=== PATIENT | female | born 1950 | race African-American/Black ===

== ENCOUNTER 2020-03-02 14:28 | Inpatient (IN) | payer OTHER ==
[~2020-03-02] VITALS: Ht 170.2 cm; Wt 125.7 kg
[2020-03-02 14:29] VITALS: BP 121/75
[2020-03-02] MEDS ORDERED: LISINOPRIL-HCT1 EAC2 PO (14:45)
[2020-03-02] MEDS ORDERED: PEPCID20 MG PO (14:45)
[2020-03-02] MEDS ORDERED: AZITHROMYCIN500 MG PO (14:45)
[2020-03-02] MEDS ORDERED: CELEBREX 200 M200 MG PO (14:46)
[2020-03-02] MEDS ORDERED: ASA81BEC PO (14:46)
[2020-03-02 15:05] LABS: HEMATOCRIT 40.5 % (37.0-47.0); HEMOGLOBIN 13.6 gm/dL (12.0-15.0); MCHC 33.7 g/dL (28.0-37.0); MCV 83.1 fL (80.0-100.0); PLATELET COUNT 180 thou/uL (150-400); RBC 4.87 mil/uL (4.20-5.00); RDW 14.3 % (10.5-14.5); WBC 9.3 thou/uL (4.0-11.0)
[2020-03-02 15:16] LABS: ANION GAP 11 mmol/L (7-16); BUN 53 mg/dL (7-18); CHLORIDE 97 mmol/L (98-107); CO2 28 mmol/L (21-32); CREATININE 1.8 mg/dL (0.6-1.0); GLUCOSE 121 mg/dL (74-106); POTASSIUM 3.4 mmol/L (3.5-5.1); SODIUM 136 mmol/L (136-145)
[2020-03-02 15:25] LABS: BE(vivo) -0.2 mmol/L (-2 to +3); HCO3 22.8 mmol/L (22.0-26.0); PCO2 32.6 mmHg (35.0-45.0); PO2 92.2 mmHg (80.0-100.0); pH 7.463 (7.360-7.450); sO2 97.5 % (92.0-98.0)
[2020-03-02 15:27] LABS: ALBUMIN 3.2 g/dL (3.4-5.0); SGOT 340 U/L (15-37); SGPT 160 U/L (30-65); TOTAL BILIRUBIN 1.1 mg/dL (<0.1-1.0); TOTAL PROTEIN 9.2 g/dL (6.4-8.2); TROPONIN-I <0.06 ng/mL (<0.06)
[2020-03-02 16:31] LABS: URINE BILIRUBIN NEGATIVE (Negative); URINE BLOOD 3+ (Negative); URINE CLARITY SL CLOUDY; URINE COLOR YELLOW; URINE GLUCOSE-RANDOM* NEGATIVE (Negative); URINE KETONES NEGATIVE (Negative); URINE LEUKOCYTES-REFLEX NEGATIVE (Negative); URINE NITRITE-REFLEX NEGATIVE (Negative); URINE PROTEIN (DIPSTICK) 2+ (Negative)
[2020-03-02 16:50] LABS: ABSOLUTE NEUTROPHILS 7.4 thou/uL (1.4-8.2); ANISOCYTOSIS 1+
[2020-03-02 16:52] LABS: COARSE GRANULAR CASTS 0-3 Few /LPF (None Seen); SQUAMOUS 0-3 Few /LPF (0-3)
[2020-03-02 16:53] LABS: TRANSITIONAL EPITHEL CELL 0-3 Few /LPF (None Seen)
[2020-03-02 16:54] LABS: BACTERIA-REFLEX 1-9 Few /HPF (None Seen); CRYSTALS None Seen /LPF (None Seen); URINE RBC 0-2 Rare /HPF (0-2); URINE WBC-REFLEX 0-5 Rare /HPF (0-5)
[2020-03-02 19:12] LABS: FIBRINOGEN 798.3 mg/dL (210-360)
[2020-03-03] VITALS (22 sets, daily range): BP systolic 95–119; BP diastolic 62–75
--- NOTE | 2020-03-03 01:02 | NUR ---
NURSE NOTIFIED OF CRITICAL RESULTS FOR aPTT. STATES PATIENT IS ON A WEIGHT-BASED HEPARIN GTTS. DR. PERRY NOTIFIED OF RESULTS
--- NOTE | 2020-03-03 06:00 | NUR ---
0445 03/03: PT TRANSPORTED TO ICU ACCOMPANIED BY SECURITY OFFICER SUPERVISOR 0500: PT ALERT AND ORIENTED. PTON 15L HIGH FLOW NC. 0515: PT ASSESSED, BATHED AND CONNECTED TO ICU MONITORS. 0550: DR. MERINO WAS CALLED AND INFORMED ABOUT PT ARRIVAL TO ICU. DR. MERINO INFORMED ABOUT PT TACHYPNEIC, TACHYCARDIC AND FEBRILE. ORDERS FOR PRN BIPAP AND TYLENOL GIVEN.
[2020-03-03] MEDS ORDERED: PROMETHAZI6.25 MG/5 (06:08)
[2020-03-03 07:30] LABS: HEMATOCRIT 38.7 % (37.0-47.0); HEMOGLOBIN 12.9 gm/dL (12.0-15.0); MCHC 33.3 g/dL (28.0-37.0); RBC 4.6 mil/uL (4.20-5.00); RDW 14.5 % (10.5-14.5); WBC 9.4 thou/uL (4.0-11.0)
[2020-03-03 07:38] LABS: CALCIUM 8.4 mg/dL (8.5-10.1); CREATININE 1.4 mg/dL (0.6-1.0); POTASSIUM 3.3 mmol/L (3.5-5.1)
--- NOTE | 2020-03-03 08:01 | EKG ---
[facility] [place] [address] ELECTROCARDIOGRAM REPORT Name: BERNARDO MCDONNELL Room #: 236-P ADM IN M.R.#: [id number] Admission: 03/02/20 Attend Phys: Shaji Santoyo MD Discharge: Date of : 50 Report #: [id number] THIS REPORT FOR: cc: Samina Godwin MD, Karla L. MD Lundgren,Shon Hall MD [facility] ~ THIS REPORT FOR: //name// [facility] ED Test Date: 2020-03-02 Test Time: 14:41:28 Pat Name: BERNARDO MCDONNELL Department: Room: [facility] Gender: F Eyeglass Fitter: PORFIRIO : 1950 Requested By: Bernardo Moses Order Number: [id number] MD: Shon Olsen Measurements Intervals [place] Rate: 117 P: 37 GA: 154 QRS: 1 QRSD: 89 T: -3 QT: 307 QTc: 429 Interpretive Statements Sinus tachycardia Poor R wave progression No previous ECG available for comparison Electronically Signed On 03-03-2020 7:59:31 CDT by Shon Olsen [email or web address] <ELECTRONICALLY SIGNED> By: Shon Olsen MD, FACC 03/03/20 0759 1441 1441 Shon Olsen MD, [facility] /EPI
--- NOTE | 2020-03-03 08:26 | NUR ---
PT RESTING WELL IN BIPAP. REPORT GIVEN TO SUDARSHAN HANEY. CHART CHECK. CONTINUE TO MONITOR. PT SLOWLY PROGRESSING TOWARDS GOALS.
[2020-03-03 11:30] LABS: ALBUMIN 2.8 g/dL (3.4-5.0); DIRECT BILIRUBIN 0.2 mg/dL (<0.1-0.2); TOTAL BILIRUBIN 0.6 mg/dL (<0.1-1.0); TOTAL PROTEIN 8.3 g/dL (6.4-8.2)
--- NOTE | 2020-03-03 12:17 | NUR ---
PT TAKEN OFF OF BIPAP PER RT IN ORDER TO DRAW AN ABG. PT TOLERATED FOR 5 MINUTES THAN BEGAN TO DESAT. I BEGAN BIPAP THERAPY AGAIN. PT SATURATION 100%.
--- NOTE | 2020-03-03 13:22 | NUR ---
ASSESSMENT: CM REVIEWED CHART AND SPOKE WITH ATTENDING. PT IS CURRENTLY ON BIPAP AND CM SPOKE WITH PATIENTS DAUGHTER KWESI WHO IS ALSO HERE ADMITTED TO THE HOSPITAL IN ATTEMPTS TO GATHER MORE INFORMATION. PT LIVES AT HOME WITH HER SON AND DAUGHTER WHO ARE ALL CURRENTLY ADMITTED BEING TESTED FOR COVID 19. PTS SON HAD BEEN TESTED AT [facility] AND REPORTEDLY GOT A CALL THAT HIS CAME BACK POSITIVE. PT WAS ADMITTED WITH COUGH/SOB. DAUGHTER REPORTS PT IS NORMALLY INDEPENDENT WITH AMBULATION BUT DOES HAVE A CANE AND WALKER AT HOME. PT DOES NOT HAVE ANY OXYGEN AT HOME OR CPAP/BIPAP BUT IS CURRENTLY ON BIPAP IN THE ICU. PT HAS NOT HAD HH IN THE PAST OR BEEN TO A SNF. PT IS INDEPENDENT WITH ADLS. PT IS IN ISOLATION TO RULE OUT COVID 19- RESULTS ARE PENDING. CM WILL CONTINUE TO FOLLOW TO ASSIST NEEDED.
--- NOTE | 2020-03-03 20:16 | NUR ---
VAT CONSULTED FOR A CL FOR THIS PT. PT IS ICU STATUS WITH COVID+ AND SEPSIS. A [id number] PLACED IN RT IJ WITH THE CXR REVEALING THE TIP AT THE CAJ. LINE OK FOR USE, PLEASE SEE NI FOR DETAILS
[2020-03-04] VITALS (25 sets, daily range): BP systolic 95–168; BP diastolic 61–94
[2020-03-04 05:40] LABS: ALBUMIN 2.6 g/dL (3.4-5.0); TOTAL BILIRUBIN 0.4 mg/dL (<0.1-1.0); TOTAL PROTEIN 7.1 g/dL (6.4-8.2)
[2020-03-04 05:53] LABS: ABSOLUTE NEUTROPHILS 7.5 thou/uL (1.4-8.2); BASOPHILS 0.1 % (0.0-2.0); EOSINOPHILS 0.1 % (0.0-3.0); HEMATOCRIT 34.1 % (37.0-47.0); HEMOGLOBIN 11.2 gm/dL (12.0-15.0); MCH 27.9 pg (26.0-34.0); MCHC 32.9 g/dL (28.0-37.0); MCV 84.7 fL (80.0-100.0); MONOCYTES 6.9 % (1.0-8.0); PLATELET COUNT 217 thou/uL (150-400); POLYS 81.9 % (36.0-66.0); RBC 4.02 mil/uL (4.20-5.00); RDW 14.5 % (10.5-14.5); WBC 9.1 thou/uL (4.0-11.0)
[2020-03-04 06:35] LABS: CALCIUM 8.4 mg/dL (8.5-10.1); CREATININE 1.2 mg/dL (0.6-1.0); POTASSIUM 3.7 mmol/L (3.5-5.1)
--- NOTE | 2020-03-04 06:37 | NUR ---
WAS UNABLE TO SEE PT UNTIL 0 DUE TO LACK N95 MASK. ASSESSMENTS AND MEDS GIVEN ARE CHARTED. PT HAD A FEVER OF 100.4 AROUND 2300 AND COMPLAINED ABOUT LUQ ABD PAIN TYLENOL GIVEN AND FEVER STATED TRENDING DOWN. TEMP AT THIS TIME IS 37.4. SPOKE TO PT'S SISTER NITA AT 1940 UPDATED HER ABOUT PT STATUS, AND VITAL SIGNS. INFORMED HER THAT PT WOULD BE GETTING CONVALESCENT PLASMA DURING THE NOC. SPOKE TO PT'S SISTER NITA AGAIN AT 0144; UPDATED HER ON PT'S STATUS AND INFORMED HER THAT PT IS CURRENTLT GETTING SAID PLASMA, PT APPEARS TO BE TOLERATING INFUSION WELL. PT IS STABLE, STILL TACHYPENIC WITH RR IN THE 30s, FIO2 OF BIPAP DOWN TO 50%. PT STILL GETS SOB WITH LIGHT ACTIVITY LIKE TURNING AND PULLING SELF UP IN BED. PT IS SLOWLY PROGRESSING TOWARDS POC GOALS.
[2020-03-04 07:04] LABS: PROTIME 10.7 Seconds (9.3-11.4)
--- NOTE | 2020-03-04 12:09 | NUR ---
ON-GOING ASSESSMENT: CM REVIEWED CHART AND SPOKE WITH ATTENDING. PT REMAINS ON THE BIPAP AND MAY POSSIBLY NEED INTUBATION IF SHE DOES NOT IMPROVE. PT REMAINS IN ISOLATION DUE TO BEING POSITIVE FOR COVID. CM WILL CONTINUE TO FOLLOW TO ASSIST NEEDED.
--- NOTE | 2020-03-04 12:14 | NUR ---
ON-GOING ASSESSMENT: CM REVIEWED CHART AND SPOKE WITH ATTENDING. PT REMAINS IN ISOLATION DUE TO BEING POSITIVE FOR COVID 19. PT REMAINS ON THE BIPAP. WILL CONTINUE TO SEE HOW PATIENT PROGRESSES.
--- NOTE | 2020-03-04 18:30 | NUR ---
Pt tachypnic throughout the day with respiratory rate up to 40's. Pt denies feeling worn out with her breathing or in distress. Maintaining O2 sat mid-upper 90's. Dr Alves here for second time to see patient and wants to continue to support. No intubation at this time. Sinus tachycardia. Maintained NPO except sips of water and meds. Started on PPN. Updates given to daughter and sister.
--- NOTE | 2020-03-04 19:15 | NUR ---
Report given to SUDARSHAN Baldwin assuming care.
--- NOTE | 2020-03-04 20:42 | NUR ---
Pt complaining of severe abdominal pain.... cramping, stabbing...generalized. Abdomen softly distended, round. BS hypoactive. Jen Campbell SOLUTION ARCHITECT called with update. Order rec'd for fentanyl 25 mcg IV.
--- NOTE | 2020-03-04 21:05 | NUR ---
Pt restless due to pain. Awaiting pharmacy to acknowledge fentanyl order. Pt pulled off BiPAP and tore apart circuit. Tacypneic, tachycardic, SaO2 down to low 80's. RT called for assistance. BiPAP replaced. Pt states she is burning up. Tylenol for temperature 38.5C. Fentanyl 25mcg for servere abdominal pain. Cold compress to forehead. Positioned onto right side per pt request. Pt begging RN to sit with her. Emotional support given.
--- NOTE | 2020-03-04 21:23 | NUR ---
Pt settling down. RR remains in the mid 30's. SaO2 96%. Pt states abdominal pain is improving.
--- NOTE | 2020-03-04 21:42 | NUR ---
Pt finally resting states pain is better and is going to try and sleep.
[2020-03-05] VITALS (55 sets, daily range): BP systolic 47–188; BP diastolic 30–116
--- NOTE | 2020-03-05 01:44 | NUR ---
Pt positioned onto left side. SaO2 consistently 89-90%. FiO2 increased to 50% per BiPAP. RT, Ailyn, notified.
--- NOTE | 2020-03-05 02:06 | NUR ---
SaO2 up to 94% with increase in FiO2 to 50%. Pt resting, states pain is much better and she is more comfortable.
--- NOTE | 2020-03-05 03:26 | NUR ---
Pt again pulled off BiPAP and tore apart circuit. Stated she was trying to get to the bathroom. Call light within reach but pt states she didn't have time to use it. Placed back on BiPAP. Bath given, linens changed. Placed on bedpan. Pt w/ large liquid dark brown stool. Pt tolerated whole event fair. SaO2 95% when placed back on BiPAP. Pt continues to breathe in the low 40's. Temp. down to 99.6 axillary. Pt reoriented to room and call light within reach. Pt reminded of danger of removing BiPAP herself when it takes time for caregivers to gown up and mask to enter room. Pt states understanding, states it couldn't be helped.
--- NOTE | 2020-03-05 05:53 | NUR ---
aptt therapeutic. No change made to Heparin gtt. Pt remains oriented x4. Tachypneic, Tachycardic. SaO2 96% on BiPAP current settings. FiO2 50%. Lungs diminished. Harsh non productive cough. Large liquid stool. PPN at 80ml/hr. NPO. Smith with adquate output.
[2020-03-05 06:11] LABS: D-DIMER 0.61 ug/mLFEU (0.19-0.50)
[2020-03-05 06:16] LABS: FIBRINOGEN 782.4 mg/dL (210-360)
--- NOTE | 2020-03-05 06:41 | NUR ---
Temperature up to 101.5/38.6C axillary. Tylenol again given for fever. Pt c/o chilling....wanting additional blankets. Emotional support given.
[2020-03-05 13:02] LABS: HEMATOCRIT 34.3 % (37.0-47.0); MCH 27.4 pg (26.0-34.0); MCV 85.8 fL (80.0-100.0); RDW 14.2 % (10.5-14.5); WBC 10.4 thou/uL (4.0-11.0)
[2020-03-05 13:18] LABS: ALBUMIN 2.4 g/dL (3.4-5.0); CALCIUM 8.8 mg/dL (8.5-10.1); CREATININE 1.1 mg/dL (0.6-1.0); MAGNESIUM 2.5 mg/dL (1.8-2.4); POTASSIUM 3.7 mmol/L (3.5-5.1); TOTAL BILIRUBIN 0.4 mg/dL (<0.1-1.0); TOTAL PROTEIN 7.6 g/dL (6.4-8.2)
--- NOTE | 2020-03-05 15:34 | NUR ---
SW reviewed chart and spoke with attending physician. Pt remains on bipap and is febrile. No weekend discharge planned. SW is following to assist as needed with discharge planning.
[2020-03-05 16:46] LABS: BE(vivo) 2.2 mmol/L (-2 to +3); HCO3 28.6 mmol/L (22.0-26.0); PCO2 52.9 mmHg (35.0-45.0); PO2 220.5 mmHg (80.0-100.0); pH 7.351 (7.360-7.450); sO2 99.4 % (92.0-98.0)
--- NOTE | 2020-03-05 19:15 | NUR ---
INTUBATED AT 1425. WAS BREATHING 40-50 TIMES A MINUTE ON BIPAP. TOLERATING VENT AND SEDATED WITH PROPOFOL
[2020-03-05 20:25] LABS: HEMATOCRIT 34.7 % (37.0-47.0); HEMOGLOBIN 11.2 gm/dL (12.0-15.0); MCH 27.7 pg (26.0-34.0); MCHC 32.2 g/dL (28.0-37.0); MCV 86.1 fL (80.0-100.0); RBC 4.04 mil/uL (4.20-5.00); RDW 14.4 % (10.5-14.5); WBC 13.9 thou/uL (4.0-11.0)
--- NOTE | 2020-03-05 21:30 | NUR ---
WENT TO ASSESS PT AT 1999 TEMP WAS 38.6 CELCIUS. ICE PACKS WAS PUT IN HER GROIN, UNDERARM AND NECK AND TYLENOL WAS GIVEN. TEMP CONTINUED TO TREND UP WITH MAX BEING 39.6 CELCIUS. PT ALSO BECAME HYPERTENSIVE, TACHYCARDIC, AND TACHYPNEIC WITH BP UP TO 188/96, HR IN 130s AND RR BTW HIGH 50s - LOW 70s. I GAVE HER A 23ML BOLUS OF PROPOFOL AT 2024 AND SHE BEGAN TO STABILIZE. PT BP, RR AND HR STARTED TRENDING DOWN. AT 2044, BP WAS DOWN TO 104/67, HR-118 AND RR- 28. AT 2099. TEMP STARTED TO TREND DOWN AND MOST RECENT TEMP IS 39.0 CELCIUS. SPOKE TO PT'S SISTER AT 2123, UPDATED HER ABOUT PT'S STATUS INCLUDING PT'S VSS AT THE TIME.
--- NOTE | 2020-03-05 22:04 | NUR ---
WENT TO ASSESS PT AT 1999, TEMP WAS 38.6 CELCIUS, ICE PACKS WERE PUT IN HER GROIN, UNDERARM, NECK AND TYLENOL WAS ALSO GIVEN. PT'S TEMP CONTINUED TO TREND UP WITH THE MAX BEING 39.6 CELCIUS. PT BECAME HYPERTENSIVE, TACHYCARDIC, AND TACHYPNEIC WITH BP UP TO 188/96, HR IN 130s AND RR BTW HIGH 50s - LOW 70s. I TURNED UP HER PROPOFOL TO 80 MCG AND SHE BEGAN TO STABILIZE. PT'S BP, RR, AND HR STARTED TRENDING DOWN. AT 2044, BP WAS DOWN TO 104/67, HR-118 AND RR-28. AT 2099, TEMP STARTED TO TREND DOWN MOST RECENT TEMP BEING 38.9 SPOKE TO PT'S SISTER NITA AT 2123; UPDATED HER ABOUT PT'S STATUS INCLUDING PT'S VSS AT THAT TIME.
[2020-03-06] VITALS (84 sets, daily range): BP systolic 80–142; BP diastolic 33–88
[2020-03-06 05:13] LABS: BE(vivo) -0.9 mmol/L (-2 to +3); HCO3 25.3 mmol/L (22.0-26.0); PCO2 48.2 mmHg (35.0-45.0); PO2 156.4 mmHg (80.0-100.0); pH 7.338 (7.360-7.450); sO2 98.9 % (92.0-98.0)
[2020-03-06 06:52] LABS: ABSOLUTE NEUTROPHILS 13.4 thou/uL (1.4-8.2); BASOPHILS 0.3 % (0.0-2.0); EOSINOPHILS 0.3 % (0.0-3.0); HEMATOCRIT 33.1 % (37.0-47.0); HEMOGLOBIN 10.6 gm/dL (12.0-15.0); LYMPHOCYTES 4.8 % (24.0-44.0); MCH 27.7 pg (26.0-34.0); MCHC 32.1 g/dL (28.0-37.0); MCV 86.3 fL (80.0-100.0); PLATELET COUNT 270 thou/uL (150-400); POLYS 90.6 % (36.0-66.0); RBC 3.83 mil/uL (4.20-5.00); RDW 14.7 % (10.5-14.5); WBC 14.8 thou/uL (4.0-11.0)
[2020-03-06 07:12] LABS: D-DIMER 0.91 ug/mLFEU (0.19-0.50); INR 1.1; PROTIME 11.1 Seconds (9.3-11.4)
[2020-03-06 07:16] LABS: CALCIUM 8.9 mg/dL (8.5-10.1); CREATININE 1.2 mg/dL (0.6-1.0); MAGNESIUM 2.1 mg/dL (1.8-2.4); POTASSIUM 3.4 mmol/L (3.5-5.1); TOTAL BILIRUBIN 0.5 mg/dL (<0.1-1.0); TOTAL PROTEIN 7.3 g/dL (6.4-8.2)
[2020-03-06 07:18] LABS: FIBRINOGEN 798.3 mg/dL (210-360)
[2020-03-06 13:44] LABS: BE(vivo) 1.6 mmol/L (-2 to +3); HCO3 25.8 mmol/L (22.0-26.0); PCO2 39.1 mmHg (35.0-45.0); PO2 88.8 mmHg (80.0-100.0); pH 7.438 (7.360-7.450); sO2 97.1 % (92.0-98.0)
--- NOTE | 2020-03-06 15:04 | NUR ---
PT REMAINS ON THE VENT AT THIS TIME. LUNGS ARE COARSE. SINUS TACYCARDIA NOTED ON THE CARDIAC MONIOR. PEREZ TO DD WITH BERYL URINE NOTED. REMAINS IN WRIST RESTRAINTS BILAERAL. REMAINS ON HEPARIN DRIP PER PROTACAL AT THIS TIME. WILL HOLD PRONING TODAY. FAMILY UPDATED ON PT PROGRESS IN THE ICU NO ISSUES OR CONERNS NOTED AT THIS TIME PER NURSING
[2020-03-07] VITALS (42 sets, daily range): BP systolic 88–142; BP diastolic 51–90
[2020-03-07 05:37] LABS: HEMATOCRIT 29.3 % (37.0-47.0); HEMOGLOBIN 9.4 gm/dL (12.0-15.0); MCH 27.4 pg (26.0-34.0); MCV 85.9 fL (80.0-100.0); RBC 3.41 mil/uL (4.20-5.00); RDW 14.6 % (10.5-14.5); WBC 12.2 thou/uL (4.0-11.0)
[2020-03-07 05:47] LABS: CALCIUM 8.5 mg/dL (8.5-10.1); CREATININE 1.7 mg/dL (0.6-1.0); MAGNESIUM 2.1 mg/dL (1.8-2.4)
[2020-03-07 06:07] LABS: D-DIMER 5.4 ug/mLFEU (0.19-0.50); FIBRINOGEN 887.5 mg/dL (210-360)
--- NOTE | 2020-03-07 06:20 | NUR ---
Pt has had uneventful night. Fever initially 101.7 F, now down to 98 F (no Tylenol given for temp). Tolerating tube feeding, increased from 20 cc/hr to 30 cc/hr this shift. Flexiseal placed early in shift to prevent skin breakdown due to continuous small to moderate amounts of liquid stool. Levophed started at beginning of shift to keep MAP >60; pt remains on 5 mcg/min and MAP has been 61-80. Urine output remains adequate. Blood sugar on labs >250 this morning. Pt not diabetic but did start on steroids per Dr. Santoyo. BATTERY REPAIRER notified and sliding scale insulin ordered.
--- NOTE | 2020-03-07 18:39 | NUR ---
SPOKE WITH PT'S DAUGHTER ANNE ON PHONE AND GAVE HER AN UPDATE ON PT'S CONDITION. DAUGHTER STATES SHE WILL CALL AGAIN IN AM TO CHECK ON HER.
--- NOTE | 2020-03-07 18:44 | NUR ---
PT WEANED OFF OF LEVOPHED THIS SHIFT. MAP HAS REMAINED GREATER THAN 60.
[2020-03-08] VITALS (17 sets, daily range): BP systolic 108–141; BP diastolic 61–83
[2020-03-08 05:23] LABS: CALCIUM 8.6 mg/dL (8.5-10.1); CREATININE 1.7 mg/dL (0.6-1.0); MAGNESIUM 2.4 mg/dL (1.8-2.4); POTASSIUM 3.2 mmol/L (3.5-5.1)
[2020-03-08 05:26] LABS: D-DIMER 0.72 ug/mLFEU (0.19-0.50)
[2020-03-08 05:31] LABS: FIBRINOGEN 849.7 mg/dL (210-360)
--- NOTE | 2020-03-08 06:00 | NUR ---
REMAINS INTUBATED AND SEDATED WITH PROPOFOL GTT. 1300 CC UO THIS SHIFT. CONT ON HEPARIN GTT APTT THERAPUTIC BATH. ISOLATION FOR COVID 19, WILL CONT TO MONITOR
[2020-03-08 07:08] LABS: ADENOVIRUS Negative (Negative); INFLUENZA A Negative (Negative); INFLUENZA B Negative (Negative); METAPNEUMOVIRUS Negative (Negative); PARAINFLUENZA 1 Negative (Negative); PARAINFLUENZA 2 Negative (Negative); PARAINFLUENZA 3 Negative (Negative); RHINOVIRUS Negative (Negative); RSV A Negative (Negative); RSV B Negative (Negative)
[2020-03-08 07:31] LABS: HEMATOCRIT 29.9 % (37.0-47.0); HEMOGLOBIN 9.7 gm/dL (12.0-15.0); MCH 27.6 pg (26.0-34.0); MCHC 32.4 g/dL (28.0-37.0); MCV 85.4 fL (80.0-100.0); RBC 3.5 mil/uL (4.20-5.00); RDW 14.6 % (10.5-14.5)
[2020-03-08 12:48] LABS: BE(vivo) -1.3 mmol/L (-2 to +3); PCO2 36.7 mmHg (35.0-45.0); PO2 69.4 mmHg (80.0-100.0); pH 7.414 (7.360-7.450); sO2 94.3 % (92.0-98.0)
[2020-03-08 19:00] LABS: HEMATOCRIT 29.1 % (37.0-47.0); HEMOGLOBIN 9.4 gm/dL (12.0-15.0); MCH 27.2 pg (26.0-34.0); MCHC 32.3 g/dL (28.0-37.0); MCV 84.2 fL (80.0-100.0); RBC 3.46 mil/uL (4.20-5.00); RDW 14.5 % (10.5-14.5); WBC 19.6 thou/uL (4.0-11.0)
[2020-03-09] VITALS (27 sets, daily range): BP systolic 91–143; BP diastolic 52–87
[2020-03-09 03:07] LABS: GLYCOHEMOGLOBIN (HGB A1C) 6.9 % (4.8-5.6)
[2020-03-09 05:45] LABS: HEMATOCRIT 27.2 % (37.0-47.0); HEMOGLOBIN 8.8 gm/dL (12.0-15.0); MCH 27.5 pg (26.0-34.0); MCHC 32.3 g/dL (28.0-37.0); MCV 85.1 fL (80.0-100.0); RBC 3.2 mil/uL (4.20-5.00); RDW 14.7 % (10.5-14.5); WBC 20.2 thou/uL (4.0-11.0)
[2020-03-09 05:48] LABS: ALBUMIN 1.8 g/dL (3.4-5.0); CALCIUM 8.5 mg/dL (8.5-10.1); CREATININE 1.6 mg/dL (0.6-1.0); POTASSIUM 3.2 mmol/L (3.5-5.1); TOTAL BILIRUBIN 0.3 mg/dL (<0.1-1.0); TOTAL PROTEIN 6.6 g/dL (6.4-8.2)
--- NOTE | 2020-03-09 08:00 | NUR ---
0800- DR. BRANCH ROUNDING ON PATIENT. UPDATED ABOUT SEDATION VACATION THIS AM FROM [id number]. PT RESPIRATIONS WERE 60'S BPM, NO EYE OPENING, NOT FOLLOWING COMMANDS. O2 SATURATIONS WERE >92%. PATIENT AND VENTILATOR WERE NOT INSINK. NURSE TO CONTINUE TO MONITOR PATIENT STATUS.
--- NOTE | 2020-03-09 11:43 | HC ---
[facility] [place] [address] CONSULTATION Name: BERNARDO MCDONNELL Room #: 239-P ADM IN M.R.#: [id number] Admission: 03/02/20 Attend Phys: Shaji Santoyo MD Discharge: Date of : 50 Report #: [id number] THIS REPORT FOR: cc: Samina Godwin MD,Phong Garcia MD, MD ~ CC: Shaji Godwin DATE OF SERVICE: 03/08/2020 REASON FOR CONSULTATION: Severe hyperglycemia. HISTORY OF PRESENT ILLNESS: This is a 69-year-old female patient whose medical background is significant for multiple medical issues including hypertension and rheumatoid arthritis who presented on 03/02/2020 with complaints of progressive fatigue, tiredness as well as cough and fever. As she was worked up, she proved to be COVID-19 positive and had gradually gone into respiratory distress to where she had to be mechanically ventilated. Her care involved the utilization of high dose steroid therapy as well as hydroxychloroquine per protocol as well as plasma transfusion. The patient was also started on bronchodilators as well as high dose steroid therapy in the form of methylprednisolone 62.5 mg q.i.d. IV. Subsequently, she developed severe hyperglycemia over the past 24 hours, although her medical background is negative for type 2 diabetes mellitus or a prior documentation of severe hyperglycemia. After multiple attempts to contain this hyperglycemic outlook with subcutaneous insulin, the managing team reverted to intravenous insulin therapy. Her other active issues include acute kidney injury as well as transaminitis. It appears that she has had difficulties with hemodynamic instability and hypertension probably due to propofol. Again, the patient is intubated and sedated and is not accessible for a full history at the present time. REVIEW OF SYSTEMS: Cannot be obtained at the present time due to the patient's intubated, sedated state. However, having reviewed her medical record in detail. The highlights were; CONSTITUTIONAL: Positive for fever, fatigue. PULMONARY: Positive for cough and shortness of breath. Her cough was reportedly dry. CARDIAC: Noted for palpitations, lightheadedness. GASTROINTESTINAL: Negative for abdominal pain, nausea, vomiting. NEUROLOGY: Negative for loss of consciousness, seizure activity or major frequent headaches. SKIN: No reports of rash, ulceration, discoloration or other major [address] [place] [address] CONSULTATION Name: BERNARDO MCDONNELL Room #: 239-P ADM IN M.R.#: [id number] Admission: 03/02/20 Attend Phys: Shaji Santoyo MD Discharge: Date of : 50 Report #: [id number] abnormalities. UROLOGY: Negative for dysuria, hematuria, frequency, or other major urologic abnormalities. Otherwise, review of systems is noncontributory. PAST MEDICAL HISTORY: 1. Hypertension. 2. Rheumatoid arthritis. 3. GERD. Active medical issues include: 1. Respiratory failure. COVID-19 positive. 2. Acute kidney injury. 3. Hemodynamic instability. 4. Hypertension. 5. Transaminitis. 6. Severe hyperglycemia. CURRENT MEDICATIONS: Include: 1. Magnesium oxide as needed. 2. Potassium chloride as needed. 3. IV human lispro. 4. Methylprednisolone 62.5 mg q.i.d. IV push. 5. Midazolam IV. 6. Morphine p.r.n. 7. Ceftriaxone 1 gram daily. 8. ATP. 9. Famotidine 10 mg b.i.d. IV. 10. Zinc sulfate 220 mg daily. ALLERGIES: She is allergic to SULFA AND PROMETHAZINE. FAMILY HISTORY: The patient notes that both her son and daughter were acutely sick recently. Her daughter later proved to be COVID positive as well. SOCIAL HISTORY: No active use of tobacco or alcohol, but documented as using marijuana intermittently. PHYSICAL EXAMINATION: GENERAL: The patient is lying in bed, intubated, mechanically ventilated. VITAL SIGNS: Blood pressure 126/76 mmHg, heart rate is 118 beats per minute, respirations 30 per minute, temperature 37.2 degrees. CONSTITUTIONAL: Lying in bed, sedated, and mechanically ventilated. HEENT: Anicteric sclerae. NECK: Supple. CHEST: Limited air entry, bilateral rales and rhonchi. HEART: Regular rate and rhythm without murmurs [place] [address] CONSULTATION Name: BERNARDO MCDONNELL Room #: 239-P ADM IN M.R.#: [id number] Admission: 03/02/20 Attend Phys: Shaji Santoyo MD Discharge: Date of : 50 Report #: [id number] ABDOMEN: Soft, lax. No guarding. Active bowel sounds. EXTREMITIES: Lower extremity exam; edema. No skin breaks, ulcerations. Pedal pulses faint. NEUROLOGIC: Sedated. PSYCHIATRIC: Sedated. LABORATORY RESULTS: Blood glucose on arrival was at 99 and remained well under 140 mg/dL 4 days into her hospital stay as of March 07 at 1:00 p.m. her blood glucose went to 365 and then progressively got higher to a high of 434 mg/dL. Otherwise, sodium 142, potassium 3.2, chloride 106, CO2 of 25, anion gap 11, BUN 42, creatinine 1.7. Her baseline on 03/05/2020 was at 1.1, but she got as high as 1.8. Total bilirubin is 0.5, direct bilirubin 0.2, calcium 8.6, magnesium 2.4, alkaline phosphatase 80, ALT 60 down from high of 160. On arrival, albumin 2.0. EGFR 36, lactic acid 2.0. Troponin negative. Triglycerides 181. BNP 1443. CRP 353. INR 1.1. White blood count 18, hemoglobin 9.7, hematocrit 29.9, platelets 323. Influenza testing was negative. Ferritin 1483. COVID-19 was detected. ASSESSMENT AND PLAN: 1. Hyperglycemia. As noted above, the patient does not have a prior history of type 2 diabetes mellitus or documentation of severe hyperglycemia. This without a doubt is contributed to by the combination of critical illness, severe stress, pro-inflammatory state, and high-dose steroid therapy. I fully agree with the initiation of intravenous insulin therapy as per the level of hyperglycemia at hand. I would follow the [facility] protocol for intravenous insulin management including hourly blood glucose monitoring and algorithmic adjustment of her insulin flow rate. Dextrose based solutions are to be used when blood glucose is below 220 mg/dL. Transition towards a less intensive mode of management will be made when the patient appears to be more clinically stable and amenable to subcutaneous insulin therapy which will be determined based on her overall state going forward. I will obtain a hemoglobin A1c to get a better insight of her overall glycemic outlook over the past few months. 2. Respiratory failure. As noted above, the patient has developed respiratory failure with the background of pneumonia and COVID-19 positivity. She finished hydroxychloroquine protocol as well as zinc and is currently on ceftriaxone. The patient is on high dose glucocorticoid therapy, bronchodilators and is currently mechanically ventilated. The pulmonary team is following closely. 3. Pneumonia. As noted above, the patient has COVID-19 positive state as well as possible bacterial pneumonia and is covered for these issues as noted above. 4. Renal insufficiency. The patient has significant renal insufficiency which is possibly contributed to by prerenal azotemia and adequate renal perfusion in [facility] [address] [place] [address] CONSULTATION Name: BERNARDO MCDONNELL Room #: 239-P ADM IN M.R.#: [id number] Admission: 03/02/20 Attend Phys: Shaji Santoyo MD Discharge: Date of : 50 Report #: [id number] view of her earlier issues with hypertension. This will be monitored daily. I have reviewed the patient's clinical care notes, laboratory data and other pertinent clinical information in detail for over 35 minutes aside from my clinical [id number] time with the patient. I certainly appreciate this consultation by Dr. Santoyo. <ELECTRONICALLY SIGNED> By: Phong Medina MD 03/09/20 1143 1647 14 Phong Medina MD /nt
--- NOTE | 2020-03-09 12:30 | NUR ---
1230- PATIENT PLACED IN PRONE POSITION PER DR. BRANCH. ASSISTANCE OF RT AND THREE OTHER NURSES WAS PROVIDED. TRANSITION INTO PRONE POSITION WENT SMOOTHLY. PATIENT APPEARS TO TOLERATE THIS POSITION AT THIS TIME.
--- NOTE | 2020-03-09 13:15 | NUR ---
1315- nurse talked with patients family member Sherrie. Her questions were answered and she denied further questions at this time. Nurse will continue to update family as they request.
--- NOTE | 2020-03-09 15:49 | NUR ---
SW reviewed chart and spoke with attending physician. Pt remains intubated and sedated. Pt is on a heparin gtt. Pt is on insulin gtt and IV steroids. Nursing updated pt's family earlier today. SW is following to assist as needed.
--- NOTE | 2020-03-09 20:04 | NUR ---
PATIENT NOT PROGRESSING TOWARDS PLAN OF CARE EVIDENCED BY PATIENT RESPIRATORY RATE IS 40-60 BPM WHEN SEDATION IS LIGHTENED OR ON HOLD. PATIENT DOES NOT WAKE UP AND FOLLOW COMMANDS. THIS WAS RELAYED TO PHYSICIANS TODAY. TUBE FEEDING CHANGED, HOWEVER IS ON HOLD WHILE PRONE POSITION IS IN PLACE. FECAL MANAGEMENT SYSTEM LEAKS AROUND TUBE, HOWEVER THERE IS STILL STOOL IN THE TUBE. GTTS DOCUMENTED.
[2020-03-10] VITALS (21 sets, daily range): BP systolic 96–137; BP diastolic 57–87
[2020-03-10 07:01] LABS: APTT 61.4 Seconds (24.5-32.8); D-DIMER 0.56 ug/mLFEU (0.19-0.50)
--- NOTE | 2020-03-10 07:48 | NUR ---
Assessment and intervention documented. Patient remain intubated and sedated. No changes throught the night. Patient opens eyes and moves when sedation vacation however does not follow commands. Patient is stable but not progressing toward goals.
--- NOTE | 2020-03-10 16:47 | NUR ---
NOTED FECAL MANAGMENT LEAKED AROUND TUBING. NOTED THAT THERE WAS TOO MUCH AIR IN THE COLLECTING BAG. AIR EXPEL AND BAG IS DRAINING NORMALLY NOW. STARTED SEDATION VACATION BUT PATIENT QUICKLY WOKE UP AND PROPOFOL WAS RESUMED. PATIENT CONT TO REST AT THIS TIME. RESPIRATIONS AEN OTHER VITALS WITHIN RANGE. WILL CONT WITH PLAN OF CARE.
[2020-03-11] VITALS (22 sets, daily range): BP systolic 101–143; BP diastolic 56–86
--- NOTE | 2020-03-11 03:07 | NUR ---
COVID PT. SEDATION VACATION AT 2012, LASTED 13 MINUTES. PT HAS +VE GAG/COUGH REFLEX, WOULD FACIAL GRIMACE TO SUCTION, & ATTEMPT TO OPEN EYES TO STERNAL RUB. PT ON PROPOFOL AND INSULIN DRIP. INSULIN TITRATED PER PRT. BATH GIVEN THIS SHIFT. PT IS STABLE. PT IS SLOWLY PROGRESSING TOWARDS POC GOALS.
--- NOTE | 2020-03-11 09:53 | NUR ---
Please adjust TF to new goal rate of 45ml/hr. Continue beneprotein packets in water flushes.
--- NOTE | 2020-03-11 10:45 | NUR ---
SPOKE WITH DAUGHTER ANNE AND UPDATED HER AND ANSWERED HER QUESTIONS. AT 1000 TURNED PROPOFOL OFF UNTIL 1030 FOR SEDATION VACATION. HEART RATE 110 TO 112 AND RESP RATE IN THE LOWER 30'S. DID NOT FOLLOW ANY COMMANDS. JESUSWILI ATTEMPTED CPAP AT 0930 WITH RESP RATE IN THE LOWER 60'S AFTER 2 MINS OFF OF SEDATION, PLACED BACK ON THE VENT.
--- NOTE | 2020-03-11 12:53 | NUR ---
SUZAN reviewed chart and spoke with attending physician. Pt remains intubated and sedated. Pt is in Enhanced isolation. SUZAN spoke with pt's dtr, Jaz, via phone to provide update and offer support. Contact for SUZAN provided to Jaz. SUZAN is following to assist as needed with discharge planning.
--- NOTE | 2020-03-11 18:00 | NUR ---
PATIENT PROGRESSING SLOWLY TOWARDS OUTCOME GOALS SHE IS TOLERATING TUBE FEEDING WHICH WAS TURNED OFF EARLIER FOR PREP FOR TURNING PRONE, RESP THERAPY CALLED AWAY AND UNABLE TO TURN AT THIS TIME. PROPOFOL TURNED DOWN TO 20 MCG/KG. MONITOR ST WITH STABLE VS. VENT SETTINGS UNCHANGED, OCC COUGH, SUCTION SMALL AMT OF BEIGE SPUTUM. PEREZ PATENT WITH 2L OF DIURESIS AFTER LASIX THIS AM. WILL CONTINUE TO MONITOR
--- NOTE | 2020-03-11 18:46 | NUR ---
ASSUMED CARE 0700. PATIENT ON VENT. WILL FACIAL GRIMIS WHEN BOTHERED. ICU NURSE AUGIE TOOK OVER CARE 0930.
[2020-03-12] VITALS (26 sets, daily range): BP systolic 108–166; BP diastolic 61–95
[2020-03-12 06:00] LABS: ALBUMIN 2.1 g/dL (3.4-5.0); CALCIUM 8.4 mg/dL (8.5-10.1); CREATININE 1.3 mg/dL (0.6-1.0); POTASSIUM 3.7 mmol/L (3.5-5.1); TOTAL BILIRUBIN 0.4 mg/dL (<0.1-1.0); TOTAL PROTEIN 6.2 g/dL (6.4-8.2)
--- NOTE | 2020-03-12 07:00 | NUR ---
Pt remains lighlty sedated on vent. Opens eyes, does not track or follow. Tachypneic and tachycardic when sedation lightened. Propofol currently at 30 mcg/kg/min. VSS. Afebrile. Heparin gtt per protocol. Tolerating current vent settings. Minimal secretions. Tolerating tube feed. Increased Vital AF to 45ml/hr per design printer balloon recommendation. Liquid stools continue w/ leakage around fecal managment system. Insulin gtt. Smith w/ 1550ml urine/12 hrs. Report to oncoming shift.
--- NOTE | 2020-03-12 07:53 | NUR ---
RT, Jomar Sparks, here to do CPAP weaning trial. Propofol placed on hold. Vent placed on 6 cm pressure support and 5 cm PEEP. Pt drowsy. Respiratory rate 28-30's after approximately 5 minutes. O2 sat 96%.
--- NOTE | 2020-03-12 14:57 | NUR ---
SW reviewed chart and spoke with nursing and attending physician. Pt remains on the ventilator and in Enhanced Isolation. COVID-19 positive. Pt failed cpap trial earlier today. No weekend discharge planned. SUZAN is following to assist as needed with discharge planning.
--- NOTE | 2020-03-12 16:20 | NUR ---
Pt placed in prone position per physician orders. Team of RN's, ELEMENTARY SCHOOL MUSIC TEACHER and RT assembled to turn patient. Pillows placed under shoulders, hips and feet to prevent pressure. Head positioned to the left toward ventilator. Pt continues on Propofol gtt. Tube feedings off prior to turning. Continues on Heparin and Insulin infusions. Arms positioned up and onto pillows. Tolerated without incident.
--- NOTE | 2020-03-12 19:00 | NUR ---
Pt remains sedated with Propofol. Oncoming RN will start Precedex (new order). Remains in prone position. Tube feedings and insulin gtt currently off while prone. Call returned to pt's daughter, Jaz Cosme who called in for status report earlier today. Continue to support patient and work toward getting off ventilator and nursing goals.
--- NOTE | 2020-03-12 20:30 | NUR ---
DAY SHIFT RN SANDEEP WANTED THIS RN TO ASK DR. BRANCH IF THE TUBE FEED CAN BE LEFT OFF DURING PRONE POSITION THE PT IS IN INSULIN GTT. THIS RN CALLED DR BRANCH AT 1952 AND ASKED IF THE TUBE FEED CAN BE ON HOLD. HE SAID TO RESUME TUBE FEED EVEN WHEN PT IS IN PRONE POSITION.
[2020-03-13] VITALS (24 sets, daily range): BP systolic 109–161; BP diastolic 42–86
[2020-03-13 04:24] LABS: HEMATOCRIT 30.4 % (37.0-47.0); HEMOGLOBIN 9.7 gm/dL (12.0-15.0); MCH 27.3 pg (26.0-34.0); MCHC 31.8 g/dL (28.0-37.0); MCV 85.8 fL (80.0-100.0); PLATELET COUNT 268 thou/uL (150-400); RBC 3.54 mil/uL (4.20-5.00); WBC 17.7 thou/uL (4.0-11.0)
[2020-03-13 04:38] LABS: ALBUMIN 2.1 g/dL (3.4-5.0); CALCIUM 8.7 mg/dL (8.5-10.1); CREATININE 1.2 mg/dL (0.6-1.0); POTASSIUM 4.3 mmol/L (3.5-5.1); TOTAL BILIRUBIN 0.4 mg/dL (<0.1-1.0); TOTAL PROTEIN 6.4 g/dL (6.4-8.2)
[2020-03-13 04:39] LABS: D-DIMER 0.81 ug/mLFEU (0.19-0.50); INR 1.1; PROTIME 11.4 Seconds (9.3-11.4)
[2020-03-13 04:45] LABS: FIBRINOGEN 538.4 mg/dL (210-360)
--- NOTE | 2020-03-13 05:03 | NUR ---
0100: PT TURNED FROM PRONE TO ON HER BACK. TUBE FEED AND INSULIN GTT TURNED OFF PRIOR TO PT TURNING. 0130: PT HAD THREW UP SMALL AMOUNT OF TUBE FEED AROUND HER ETT. 0200: TUBE FEED WAS LEFT ON HOLD. PT BLOOD GLUCOSE 150. INSULIN DRIP ALSO ON HOLD.CHEST XRAY WAS DONE. 0230: WILMER KINNEY INFORMED ABOUT POSSIBLE ASPIRATION OF TUBE FEED DURING PT TURN. 0300: CHEST XRAY RESULTS READ BACK TO MARRY AND RECEIVED ORDER TO KEEP THE TUBE FEED ON HOLD FOR NOW. RECHECK BG AT 0400 AND ORDER FOR ANTIBIOTIC GIVEN.
[2020-03-13 05:08] LABS: BE(vivo) 1.9 mmol/L (-2 to +3); HCO3 26.2 mmol/L (22.0-26.0); PCO2 39.9 mmHg (35.0-45.0); PO2 71.8 mmHg (80.0-100.0); pH 7.435 (7.360-7.450); sO2 94.9 % (92.0-98.0)
--- NOTE | 2020-03-13 08:00 | NUR ---
RN spoke with Dr. Palomino during rounds this morning and asked provider if he wants the tube feedings and insulin gtt to continue to be on hold. Provider told RN to hold the tube feedings due to possible aspiration, discontinue the insulin gtt, initiate low dose sliding scale lispro, and start the PT on reglan. RN verbalized understanding.
[2020-03-13 09:54] LABS: ANISOCYTOSIS 1+; METAMYELOCYTES 2 %
--- NOTE | 2020-03-13 12:39 | NUR ---
RN began sedation vacation at 0800 and turned sedation back on at 0945. During this time PT raised her eyebrows but did not follow commands. VSS. At 0930 PT began coughing more frequently and made a gagging noise around the ETT. RN turned sedation back on and PT appeared to calm down. RN spoke with Jaz Cosme around 1100. Jaz was given an update on her mother's condition and she verbalized understanding. High fall risk precautions are in place. RN will continue to monitor.
--- NOTE | 2020-03-13 12:55 | NUR ---
RN spoke with Dr. Palomino via phone to clarify orders. RN told Dr. Palomino that the PT has a fecal management system that put out 200 cc in the past two days. The first dose of reglan was given. RN asked if provider wants the tube feeds restarted. Dr. Palomino stated that the tube feeds may be started again once PT has significant fecal output > 200. He stated that if PT does not have this by tonight then he may order x-rays for tomorrow morning. RN verbalized understanding.
[2020-03-13 13:05] LABS: BE(vivo) 1.1 mmol/L (-2 to +3); HCO3 25.2 mmol/L (22.0-26.0); PCO2 38.1 mmHg (35.0-45.0); PO2 74.1 mmHg (80.0-100.0); pH 7.438 (7.360-7.450); sO2 95.4 % (92.0-98.0)
--- NOTE | 2020-03-13 13:21 | NUR ---
RN spoke with Dr. Burgos in regards to PT's respiratory status. RN told Dr. Burgos that PT had been on CPAP mode for a little over an hour and tolerating it well with only precedex and 10 mcg of propofol being administered. RN read Dr. Burgos ABG results. Provider instructed to keep the PT on CPAP for another hour or so to exercise her lungs but then to put her back on assist control. Provider also wanted staff to prone PT today once she is back on assist control. RN verbalized understanding. Will continue to monitor.
--- NOTE | 2020-03-13 16:30 | NUR ---
PT WAS PLACED IN THE PRONE POSITION AT 1625 WITH RN AND RT STAFF. PT TOLERATED TURN WELL. VSS. WILL CONTINUE TO MONITOR.
[2020-03-14] VITALS (18 sets, daily range): BP systolic 108–128; BP diastolic 57–79
[2020-03-14 04:42] LABS: ALBUMIN 2.3 g/dL (3.4-5.0); ANION GAP 7 mmol/L (7-16); BUN 46 mg/dL (7-18); CALCIUM 8.9 mg/dL (8.5-10.1); CHLORIDE 114 mmol/L (98-107); CO2 30 mmol/L (21-32); CREATININE 1.1 mg/dL (0.6-1.0); GLUCOSE 184 mg/dL (74-106); MAGNESIUM 2.1 mg/dL (1.8-2.4); POTASSIUM 3.9 mmol/L (3.5-5.1); SGOT 26 U/L (15-37); SGPT 46 U/L (30-65); SODIUM 151 mmol/L (136-145); TOTAL BILIRUBIN 0.5 mg/dL (<0.1-1.0); TOTAL PROTEIN 6.8 g/dL (6.4-8.2); TROPONIN-I <0.06 ng/mL (<0.06)
--- NOTE | 2020-03-14 06:34 | NUR ---
PATIENT PRONE AT START OF SHIFT. GREEN/YELLOW DISCHARGE NOTED ON SHEETS UNDER PATIENT'S MOUTH. OG TO LOW SUCTION WITH YELLOW/GREEN OUTPUT, 200 TOTAL OUTPUT FOR SHIFT. PATIENT SUPINE AT 0120, TOLERATED WELL. PROPOFOL STOPPED AT 0400. PATIENT ABLE TO OPEN EYES TO VOICE, BUT UNABLE TO FOLLOW SIMPLE COMMANDS. PROGRESS MADE TOWARD GOALS.
--- NOTE | 2020-03-14 19:22 | NUR ---
PT REMAINS ON PRECEDEX GTT TODAY. SEDATION VACATION DONE X45 MIN BUT PT UNABLE TO TOLERATE HAD INCREASED RR AND CONTINUOUS COUGHING. WHEN PRECEDEX OFF EYES OPEN BUT DOES NOT APPEAR TO TRACK. DOES NOT FOLLOW ANY COMMANDS. +GAG AND COUGH REFLEX. CPAP X10 HRS TODAY. TOLERATED WELL. CHANGED BACK TO AC PRIOR TO PRONE AT 1800. NG TUBE REMAINS TO LIS WITH GRN DRAINAGE. KUB DONE THIS AFTERNOON. SPOKE WITH PATIENTS DAUGHTER AND UPDATED HER THIS AFTERNOON. REMAINS ON HEPARIN GTT. APTT THERAPEUTIC. REPORT GIVEN TO AD WRITER RN.
[2020-03-15] VITALS (23 sets, daily range): BP systolic 97–130; BP diastolic 57–77
--- NOTE | 2020-03-15 09:15 | NUR ---
APTT RESULT CALLED TO NURSE BY LAB AT 0741, HEPARIN WAS NOT STOPPED UNTIL 0800 DUE TO LACK OF N95 MASK. HEPARIN PROTOCAL FOLLOWED STATED IN HOSPITAL POLICY/PROCEDURES.
--- NOTE | 2020-03-15 10:10 | NUR ---
New tube feed goal rate 65ml/hr. Once TF at goal, may discontinue beneprotein. Recommend increase water flushes to 300ml every 6hr if no improvement in hypernatremia.
[2020-03-15 10:20] LABS: CALCIUM 9.1 mg/dL (8.5-10.1); CREATININE 1.2 mg/dL (0.6-1.0); POTASSIUM 3.8 mmol/L (3.5-5.1)
--- NOTE | 2020-03-15 13:36 | NUR ---
SW reviewed chart and spoke with nursing and attending physician. Pt remains in Enhanced Isolation. Pt is doing cpap trials. Will need therapy evaluations when pt is able to participate. SW is following to assist as needed with discharge planning.
[2020-03-15 13:47] LABS: BE(vivo) 0.7 mmol/L (-2 to +3); HCO3 24.9 mmol/L (22.0-26.0); PCO2 38.2 mmHg (35.0-45.0); PO2 84.3 mmHg (80.0-100.0); pH 7.432 (7.360-7.450); sO2 96.6 % (92.0-98.0)
--- NOTE | 2020-03-15 22:54 | NUR ---
PT ON PRECEDEX FOR GEORGINA MANAGT. O2 SATS IN HIGH 90s TURNED OFF PRECEDEX OFF AT 2100 AND KEPT OFF FOR 20 MINUTES. PT DOESNT FOLLOW COMMANDS BUT SHE TRACKS WITH HER EYES, FACIAL GRIMACES TO PAIN, +VE COUGH/GAG REFLEX & OPENS HER EYES TO VOICE.
[2020-03-16] VITALS (23 sets, daily range): BP systolic 94–136; BP diastolic 53–80
[2020-03-16 05:54] LABS: ABSOLUTE NEUTROPHILS 13.9 thou/uL (1.4-8.2); BASOPHILS 0.3 % (0.0-2.0); EOSINOPHILS 0.7 % (0.0-3.0); HEMATOCRIT 30.3 % (37.0-47.0); HEMOGLOBIN 9.5 gm/dL (12.0-15.0); LYMPHOCYTES 7.5 % (24.0-44.0); MCH 27.4 pg (26.0-34.0); MCHC 31.2 g/dL (28.0-37.0); MCV 87.6 fL (80.0-100.0); PLATELET COUNT 241 thou/uL (150-400); POLYS 84.5 % (36.0-66.0); RBC 3.46 mil/uL (4.20-5.00); RDW 15.6 % (10.5-14.5); WBC 16.5 thou/uL (4.0-11.0)
[2020-03-16 06:28] LABS: INR 1.2; PROTIME 11.9 Seconds (9.3-11.4)
[2020-03-16 06:33] LABS: FIBRINOGEN 515.8 mg/dL (210-360)
[2020-03-16 06:36] LABS: ALBUMIN 2.1 g/dL (3.4-5.0); CALCIUM 8.4 mg/dL (8.5-10.1); CREATININE 1.2 mg/dL (0.6-1.0); POTASSIUM 3.7 mmol/L (3.5-5.1); TOTAL BILIRUBIN 0.4 mg/dL (<0.1-1.0); TOTAL PROTEIN 5.7 g/dL (6.4-8.2)
--- NOTE | 2020-03-16 12:51 | NUR ---
PRECEDEX DRIP PUT ON HOLD AT 0800. AT THIS TIME DOES NOT FOLLOW COMMANDS BUT OPENS EYES TO NAME. 1000: ATTEMPTED TO SQUEEZE HAND BUT VERY WEAK. NODDED HEAD YES TO QUESTION " ARE YOU HOT?". PRECEDEX STILL ON HOLD.
--- NOTE | 2020-03-16 16:51 | NUR ---
SUZAN reviewed chart and spoke with attending physician. Pt remains intubated and in Enhanced Isolation. Pt not tolerating cpap trials. Renal consulted due to hypernatremia. SUZAN spoke with pt's dtr, Jaz, via phone to provide update. Jaz requests to speak with labor relations manager regarding plan for vent weaning and possibility of pt needing terminal computer operator ventilator support. Jaz's contact info was provided to labor relations manager. SUZAN is following to assist as needed with discharge planning.
[2020-03-17] VITALS (23 sets, daily range): BP systolic 102–148; BP diastolic 61–85
--- NOTE | 2020-03-17 00:35 | NUR ---
D5.2 started at 150 ml/hr for hypernatremia in addition to 350ml free water q 6hr via OGT.
[2020-03-17 05:54] LABS: CALCIUM 8.4 mg/dL (8.5-10.1); CREATININE 1.1 mg/dL (0.6-1.0); PHOSPHORUS 3.2 mg/dL (2.5-4.9); POTASSIUM 3.4 mmol/L (3.5-5.1)
--- NOTE | 2020-03-17 06:25 | NUR ---
Shift summary: Pt remains lightly sedated on vent. Arouses slowly and follows simple commands. VSS. Afebrile. SR per monitor. Tolerating current vent settings. Minimal secretions. Lungs clear. Tolerating full strength Vital AF @65ml/hr w/ 350ml free water flush q 6h. Sodium down to 153 with addition of D51/4 at 150 ml/hr. Spoke with Dr. Soto, will continue both. Blood sugars managed per Endocrine; both >200 tonight; covered with low dose SSC. Fecal management system with moderate amt foul smelling light brown stool. Leaking around tube as well. Smith w/ adequate output. Heparin gtt therapeutic. Plan of care reviewed and updated as able. Slow progress towards discharge goals.
--- NOTE | 2020-03-17 10:21 | NUR ---
RN had indicated Renal asking pharmacist for lower Na tube feed formula. Options to consider: Current Vital AF at 65ml/hr contains 1872 calories, 117g protein, 1264ml free water and 2185mg Na per day. If changed to Nepro at 45ml/vz=1033 calories, 87g protein, 780ml free water, and 1145mg Na per day.
--- NOTE | 2020-03-17 10:30 | NUR ---
PT DAUGHTER CALLED. UPDATE GIVEN. EMOTIONAL SUPPORT GIVEN.
--- NOTE | 2020-03-17 12:25 | NUR ---
DR. STALEY HERE UPDATE GIVEN. REPORTED FEVER 99.9 ORAL. NO NEW ORDERS. STATED SHE DID NOT NEED HEAD CT DONE.
--- NOTE | 2020-03-17 15:55 | NUR ---
REPORT GIVEN TO HEMA HEATON.
--- NOTE | 2020-03-17 16:19 | NUR ---
SW reviewed chart and spoke with nursing and attending physician. Pt remains intubated. cpap trials continue. SW received call from pt's dtr, Jaz, requesting info on post-acute care facilities, should pt need trach/peg placement. SW provided options for LTAC. Pt's dtr received voice message from slot shift supervisor yesterday and will return the call to discuss plan of care. SW is following to assist as needed with discharge planning.
--- NOTE | 2020-03-17 23:57 | NUR ---
FMS LEAKING COPIOUSLY. IRRIGATED, BAG DOUBLE CHECKED. BALLOON CHECKED. COMPLETE BED BATH GIVEN. PICTURES TAKEN OF SACRUM AND LEFT CHEEK.
[2020-03-18] VITALS (24 sets, daily range): BP systolic 120–159; BP diastolic 71–95
[2020-03-18 05:35] LABS: CALCIUM 8.5 mg/dL (8.5-10.1); PHOSPHORUS 2.5 mg/dL (2.5-4.9); POTASSIUM 3.7 mmol/L (3.5-5.1)
[2020-03-18 06:40] LABS: HEMATOCRIT 27.6 % (37.0-47.0); HEMOGLOBIN 8.7 gm/dL (12.0-15.0); MCH 27.5 pg (26.0-34.0); MCHC 31.6 g/dL (28.0-37.0); MCV 87.1 fL (80.0-100.0); RBC 3.16 mil/uL (4.20-5.00); RDW 15.7 % (10.5-14.5); WBC 17.7 thou/uL (4.0-11.0)
[2020-03-18 10:00] LABS: BE(vivo) -0.3 mmol/L (-2 to +3); HCO3 24.2 mmol/L (22.0-26.0); PCO2 39.2 mmHg (35.0-45.0); pH 7.409 (7.360-7.450); sO2 96.6 % (92.0-98.0)
--- NOTE | 2020-03-18 10:30 | NUR ---
ASSUMED CARE FOR LULY RN AT 0700 TODAY. PATIENT PLACED ON CPAP AT DIANNE 0830 TODAY, MONITOR SHOWING ST AND RESP RATE IN THE UPPER 30'S TO LOWER 40'S. ALL SEDATION AND PAIN MEDICATIONS ARE OFF. ABG'S DRAWN AT 1 HOUR, PATIETN PLACED BACK ON THE VENT AND ABG'S CALLED TO DR BRANCH AT 1028. NO NEW ORDERS RECEIVED. PATIENT TOLERATING TUBE FEEDINGS WITH MINIMAL RESIDUALS. URINE OUTPUT GREATER THAN 60 ML/HR. IVF CONTINUE. DR LOPES AND DR BRANCH INFORMED OF PATIENT BEING GREATER THAN 4000 INTAKE FOR PAST SEVERAL DAYS, DEFERRED TO NEPHROLOGY.
--- NOTE | 2020-03-18 13:00 | NUR ---
DR MAHER CALLED IN AND AWARE OF + 4L OF INTAKE, STATED TO CONTINUE FLUIDS IS FOR TODAY. DAUGHTER ANNE CALLED IN AND UPDATED AT 1258. REASSURANCE GIVEN. PATIENT IS ALERT AND RESPONSIVE, FOLLOWING SIMPLE COMMANDS.
--- NOTE | 2020-03-18 15:07 | NUR ---
SW reviewed chart and spoke with nursing and attending physician. Pt remains on the ventilator. CPAP trials continue. Pt remains in Enhanced Isolation. Pt will need therapy evals when able to participate. SUZAN is following to assist as needed with discharge planning.
--- NOTE | 2020-03-18 18:30 | NUR ---
PATIENT PROGRESSING SLOWLY TOWARDS OUTCOME GOALS EVIDENT BY CONTINUING TO CPAP DAILY, PATIENT IS ALERT AND CALM WILL FOLLOW SIMPLE COMMANDS. COPIOUS AMT OF ORAL SECRETIONS. TOLERATING TUBE FEEDINGS. URINE OUTPUT GREATER THAN 100 ML/HR. MONITOR SINUS RHYTHM AT PRESENT. WILL CONTINUE TO MONITOR
[2020-03-19] VITALS (24 sets, daily range): BP systolic 100–152; BP diastolic 57–84
[2020-03-19 02:57] LABS: BASOPHILS 0.1 % (0.0-2.0); EOSINOPHILS 1.8 % (0.0-3.0); HEMOGLOBIN 8.9 gm/dL (12.0-15.0); LYMPHOCYTES 9.1 % (24.0-44.0); MCH 27.2 pg (26.0-34.0); MCHC 31.7 g/dL (28.0-37.0); MONOCYTES 3.6 % (1.0-8.0); PLATELET COUNT 221 thou/uL (150-400); POLYS 85.4 % (36.0-66.0); RBC 3.26 mil/uL (4.20-5.00); RDW 15.4 % (10.5-14.5); WBC 18.7 thou/uL (4.0-11.0)
[2020-03-19 03:04] LABS: ALBUMIN 2.1 g/dL (3.4-5.0); CALCIUM 8.4 mg/dL (8.5-10.1); PHOSPHORUS 2.9 mg/dL (2.5-4.9); POTASSIUM 3.6 mmol/L (3.5-5.1); TOTAL BILIRUBIN 0.5 mg/dL (<0.1-1.0); TOTAL PROTEIN 6.4 g/dL (6.4-8.2)
--- NOTE | 2020-03-19 03:51 | NUR ---
0330-PTT RESULTS 76.7 THIS AM. HEPARIN GTT TITRATED DOWN FROM 12.9 UNITS/KG/HOUR TO 10.9 UNITS/KG/HOUR PER PROTOCOL ON EMAR. NEXT PTT TO BE DRAWN ON 03/19/20 AT 0830.
[2020-03-19 03:56] LABS: BE(vivo) -0.9 mmol/L (-2 to +3); HCO3 22.7 mmol/L (22.0-26.0); PCO2 33.3 mmHg (35.0-45.0); PO2 81.4 mmHg (80.0-100.0); pH 7.451 (7.360-7.450); sO2 96.6 % (92.0-98.0)
--- NOTE | 2020-03-19 07:15 | NUR ---
PATIENT REMAINS INTUBATED. HOWEVER PATIENT IS NOT SEDATED. PATIENT FOLLOWS COMMANDS AND IS VERY WEAK IN UPPER EXTREMITIES, AND DOES NOT MOVE LOWER EXT. NODS APPROPRIATELY TO YES AND NO QUESTIONS. MINIMAL VENT SETTINGS HOWEVER DOES NOT TOLERATE CPAP TRIALS. CURRENTLY NOT PRONING PATIENT PER MD ORDERS. VSS. WILL REPORT OFF TO DAY SHIFT RN.
--- NOTE | 2020-03-19 07:59 | NUR ---
ASSUMED CARE AT 0700, ASSESSMENT AND VITAL SIGNS COMPLETED PER ICU PROTOCOL. RN WILL CONTINUE TO FOLLOW POC.
--- NOTE | 2020-03-19 14:00 | NUR ---
SW reviewed chart and spoke with attending physician. Pt remains on the ventilator and doing cpap trials. Remains in Enhanced Isolation. No weekend discharge planned. SUZAN is following to assist as needed with discharge planning.
[2020-03-20] VITALS (24 sets, daily range): BP systolic 91–140; BP diastolic 53–86
--- NOTE | 2020-03-20 06:34 | NUR ---
HEPARIN DRIP OFF PROPOFOL FOR SEDATION. PT BACK ON HER BACK AT 0030. TUBE FEED RESTARTED AT 0100. CONTINUE TO MONITOR. CHART CHECK.
--- NOTE | 2020-03-20 12:00 | NUR ---
Approximately 1130 RT placed pt on CPAP trial. Propofol not interrupted. RT (Karley) stayed with pt through the trial which lasted approximately twenty mintues. Pt tachypnic with respiratory rates 30's. Pt placed back on previos settings. VSS.
--- NOTE | 2020-03-20 19:00 | NUR ---
Orders connor for Proning eight hours q 24 hrs. Planning to prone pt. after RT resecures ET tube. REport given to RN assuming care. Pt remains sedated with Propofol. Bath completed so pt would be prepared for proning and tube feedings placed on hold approximately 1700. Update given to pt's sister Stefany Winchester today over the telephone.
--- NOTE | 2020-03-20 19:45 | NUR ---
Dr Burgos here. Cotinue to support pt and work towar goals. Proning will be done on next shift due to staffing limitations.
[2020-03-21] VITALS (24 sets, daily range): BP systolic 105–146; BP diastolic 60–87
--- NOTE | 2020-03-21 07:20 | NUR ---
Assessment and interventions documented. Patient still sedated. Able to follow commands intermentently when off sedation. Prone @0000, tolerated proning well. No adverse events throughout the night. Patient is stable however not progressing toward goals.
--- NOTE | 2020-03-21 08:34 | NUR ---
0700 report received from night RN. PT WAS IN PRONE POSITION SINCE 0000 PER REPORT. PT TURNED AT 0815 TO SEMI FOWLERS WITH HOB AT 30 DEGREES WITH ASSISTANCE FROM 3 RN'S AND 1 RT.
[2020-03-21 11:25] LABS: CREATININE 0.8 mg/dL (0.6-1.0); POTASSIUM 3.5 mmol/L (3.5-5.1)
--- NOTE | 2020-03-21 14:58 | NUR ---
1330-PT'S DAUGHTER ANNE CALLED AND RN GAVE PT UPDATE TO DAUGHTER. 1455-PT'S SISTER NITA CALLED AND RN GAVE PT UPDATE TO SISTER.
--- NOTE | 2020-03-21 15:00 | NUR ---
1430- PROPOFOL PAUSED FOR SEDATION VACATION. PT'S DAUGHTER KWESI (ALSO A PATIENT) IS IN ROOM VISITING WITH PT. NGUYEN GIVEN PER DR. SERNA AND DR. BRANCH.
[2020-03-22] VITALS (25 sets, daily range): BP systolic 95–138; BP diastolic 52–80
[2020-03-22 04:41] LABS: ABSOLUTE NEUTROPHILS 10.9 thou/uL (1.4-8.2); BASOPHILS 0.1 % (0.0-2.0); EOSINOPHILS 5.7 % (0.0-3.0); HEMATOCRIT 25.9 % (37.0-47.0); HEMOGLOBIN 8.4 gm/dL (12.0-15.0); LYMPHOCYTES 11.8 % (24.0-44.0); MCH 28.1 pg (26.0-34.0); MCHC 32.6 g/dL (28.0-37.0); MCV 86.2 fL (80.0-100.0); MONOCYTES 8.5 % (1.0-8.0); PLATELET COUNT 200 thou/uL (150-400); POLYS 73.9 % (36.0-66.0); RBC 3.01 mil/uL (4.20-5.00); RDW 15.6 % (10.5-14.5); WBC 14.8 thou/uL (4.0-11.0)
[2020-03-22 04:47] LABS: ALBUMIN 2.3 g/dL (3.4-5.0); CALCIUM 8.3 mg/dL (8.5-10.1); CREATININE 0.8 mg/dL (0.6-1.0); POTASSIUM 3.6 mmol/L (3.5-5.1); TOTAL BILIRUBIN 0.4 mg/dL (<0.1-1.0); TOTAL PROTEIN 5.6 g/dL (6.4-8.2)
[2020-03-22 05:08] LABS: BE(vivo) 3.2 mmol/L (-2 to +3); HCO3 27.4 mmol/L (22.0-26.0); PCO2 40.3 mmHg (35.0-45.0); PO2 96.6 mmHg (80.0-100.0); sO2 97.6 % (92.0-98.0)
--- NOTE | 2020-03-22 05:55 | HC ---
[facility] [place] [address] CONSULTATION Name: BERNARDO MCDONNELL Room #: 239-P ADM IN M.R.#: [id number] Admission: 03/02/20 Attend Phys: Shaji Santoyo MD Discharge: Date of : 50 Report #: [id number] THIS REPORT FOR: cc: Samina Godwin MD,Samina Velazquez,Fany Cheema MD ~ CC: Shaji Godwin REASON FOR THE CONSULTATION: Hypernatremia. REASON FOR THE PRESENTATION: Shortness of breath. HISTORY OF PRESENT ILLNESS: This is obtained from the medical chart, currently intubated. This is a 69-year-old with history of rheumatoid arthritis who presented on March 02 with shortness of breath. She reported cough. She tested positive for COVID-19. She has history of rheumatoid arthritis. She had required, unfortunately, vent support given her worsening oxygenation. She ran into issues with hypernatremia during her hospital stay, mandating Nephrology consultation. She was initiated on appropriate free water. Reviewing her medical chart, she had been on the negative balance over the last few days contributing to her hypernatremia. From the renal perspective, she did have an elevated creatinine on presentation; however, this has significantly improved. She was treated for her COVID-19 accordingly and currently, she is being seen by Endocrinology, Infectious Disease, Pulmonary Critical Care. PAST MEDICAL HISTORY: 1. Rheumatoid arthritis. 2. Hypertension. 3. GERD. 4. COVID-19. 5. Respiratory failure. ALLERGIES: SULFA. FAMILY HISTORY: There does seem to be some issues with COVID-19 positivity in the family. SOCIAL HISTORY: Per the medical charts, there is no reported drug or alcohol abuse. REVIEW OF SYSTEMS: Unobtainable given the patient's current intubated status. HOME MEDICATIONS: 1. Aspirin. [facility] [address] [place] [address] CONSULTATION Name: BERNARDO MCDONNELL Room #: 239-P [facility]#: [id number] Admission: 03/02/20 Attend Phys: Shaji Santoyo MD Discharge: Date of : 50 Report #: [id number] 2. Azithromycin. 3. Lisinopril. 4. Hydrochlorothiazide. PHYSICAL EXAMINATION: VITAL SIGNS: Temperature 36.7, blood pressure 124/69. HEAD AND NECK: ET tube. CHEST: Bilateral crackles. CARDIOVASCULAR: No rub. ABDOMEN: Soft, nontender. EXTREMITIES: Lower extremities, +1 edema. LABORATORY VALUES: Sodium is down to 153 from 157, potassium of 3.4, BUN is 40, creatinine is 1.1. White blood cell count 16.5, hemoglobin 9.5, platelet 241. ASSESSMENT, IMPRESSION, PLAN: 1. Hypernatremia due to free water deficit. 2. Coronavirus disease 2019 active infection. 3. Respiratory failure. 4. Diabetes mellitus. 5. Keep on D5 quarter normal saline for now. Sodium seems to be improving. 6. Follow serial sodium levels. 7. Watch blood sugar. 8. We will continue to follow. <ELECTRONICALLY SIGNED> By: Fany Velazquez MD 03/22/20 0555 [id number] Fany Velazquez MD /nt
--- NOTE | 2020-03-22 06:27 | NUR ---
PATIENT REMAINS INTUBATED AND SEDATED WITH PROPFOL GTT. OFF OF ALL SEDATION PT OPENED HER EYES, BUT DID NOT TRACK. PATIENT DID NOT FOLLOW COMMANDS OR ATTEMPT ANY MOVEMENT OF EXTREMITIES. PATIENT TOLERATING TUBE FEEDING AND WATER FLUSHES. PATIENT NOT PROGRESSING TOWARDS GOAL. PT BECOMES TACHYCARDIC (110'S) AND TACHYPENIC (30'S) WITH ANY SORT OF MOVEMENT OR OFF SEDATION.
--- NOTE | 2020-03-22 08:24 | NUR ---
PATIENT RESITNG AT SHIFT CHANGE. RN ASSESSING PATIENT AND DURING SEDATION VACATION, PATIENT AWAKE, DROWSY BUT ABLE TO ANSWER YES/NO QUESTIONS. PROPFOL GTT TURNED OFF RN MONITORING PATIENT AND VITAL SIGNS ARE STABLE.
--- NOTE | 2020-03-22 16:31 | NUR ---
SW reviewed chart and spoke with attending physician. Pt remains intubated and in Enhanced Isolation for COVID-19. Cpap trials continue. Pt will need therapy evals when able to participate. SW is following to assist as needed with discharge planning.
[2020-03-23] VITALS (24 sets, daily range): BP systolic 88–128; BP diastolic 49–69
--- NOTE | 2020-03-23 03:24 | NUR ---
PT ON PRECEDEX GTT TITRATED DOWN TO 0.2MCG FROM 0.4MCG. VSS. PT OPEN EYES TO VOICE, DOESNT MOVE EXTREMITIES BUT SHE TRACKS WITH HER EYES AND NODS YES/NO TO SIMPLE QUESTIONS. BATH GIVEN THIS SHIFT. U/0 >45ML/HR. PT HAD AN UNEVENTFUL NOC. PT IS STABLE, AND SLOWLY PROGRESSING TOWARDS POC GOALS.
[2020-03-23 06:40] LABS: CALCIUM 8.5 mg/dL (8.5-10.1); CREATININE 0.8 mg/dL (0.6-1.0); POTASSIUM 3.9 mmol/L (3.5-5.1)
--- NOTE | 2020-03-23 15:38 | NUR ---
PT VENTILATED LIGHTLY SEDATED ON PRECEDEX GTT. FIO2 TITRATED TO 30% BY RT. DR MERINO ASKED TO HAVE DR STALLWORTH CONSULTED FOR A TRACH/PEG. COVID TEST STILL PENDING. ON INIATIAL ASSESSMENT PT WAS UNABLE TO FOLLOW COMMANDS TO MOVE UPPER EXTREMITIES, WAS ABLE TO MOVED BILATERAL LOWERS. AT 1530 ASSESSMENT PT WAS ABLE TO LIGHTL SQUEEZE MY HANDS WITH HERS. PT ORIENTED TO SELF AND SITUATION BUT NOT TO YEAR OR LOCATION. ADEQUTE URINE OUTPUT. FMS IN PLACE. TUBE FEED AT GOAL WITH RESIDUALS WNL. NITA (SISTER) AND ANNE (DAUGHTER) UPDATED AND EDUCATED ON PT'S CONDITION AND POC. CPAP TRIAL FAILED THIS AM, PT TACHYPNEIC IN THE UPPER 30'S, MINUTE VENTILATION 19L/MIN. PT NOT PROGRESSING TOWARDS PLAN OF CARE. WILL CONTINUE TO MONITOR.
--- NOTE | 2020-03-23 16:17 | NUR ---
SW reviewed chart and spoke with attending physician. Pt remains in Enhanced Isolation. Repeat COVID-19 test is pending. CPAP trials continue. Pt may need trach/peg placement. SUZAN is following to assist as needed with discharge planning.
[2020-03-24] VITALS (23 sets, daily range): BP systolic 91–118; BP diastolic 47–69
--- NOTE | 2020-03-24 05:13 | NUR ---
Pt has rested intermittently except for coughing spells. Tolerating current vent settings, however sedation increased to help with coughing. Pt nods head to questions and makes needs known. Denies pain or difficulty breathing. UOP adequate, FMS w/ liquid stool, pt turned q2-3 hours. Tylenol given for temp, however pt has remained febrile. Tolerating tube feeds without residuals. Lab states the sputum for COVID is pending as it was a send out, nasal COVID swab sent to lab to run today (per Dr. Guerrero's orders). See reasessments for any further details. Slowly progressing towards goals.
[2020-03-24 06:19] LABS: CALCIUM 8.5 mg/dL (8.5-10.1); CREATININE 0.8 mg/dL (0.6-1.0); POTASSIUM 3.7 mmol/L (3.5-5.1)
[2020-03-24 12:29] LABS: URINE BILIRUBIN NEGATIVE (Negative); URINE BLOOD 3+ (Negative); URINE CLARITY CLEAR; URINE COLOR YELLOW; URINE GLUCOSE-RANDOM* NEGATIVE (Negative); URINE KETONES NEGATIVE (Negative); URINE LEUKOCYTES NEGATIVE (Negative); URINE NITRITE NEGATIVE (Negative); URINE PROTEIN (DIPSTICK) TRACE (Negative); URINE SPECIFIC GRAVITY 1.015 (1.005-1.035); URINE UROBILINOGEN 0.2 E.U./dl (0.2-1.0)
[2020-03-24 12:47] LABS: BACTERIA 1-9 Few /HPF (None Seen); CASTS None Seen /LPF (None Seen); CRYSTALS None Seen /LPF (None Seen); SQUAMOUS 4-10 Moderate /LPF (0-3); URINE RBC 3-10 Few /HPF (0-2); URINE WBC 0-5 Rare /HPF (0-5); YEAST Present (None Seen)
--- NOTE | 2020-03-24 14:14 | NUR ---
ASSESSMENTS DOCUMENTED. PT VENTILATED AND LIGHTLY SEDATED ON PRECEDEX GTT. UOP ADEQUATE. FMS IN PLACE, WITH ACTIVE BOWEL SOUNDS. CPAP TRIAL FAILED THIS AM. TUBE FEED AT GOAL, RESIDUALS WNL. PLAN IS TO TRACH AND PEG IN NEAR FUTURE. FAMILY WOULD LIKE TO WAIT A FEW MORE DAYS. DR MERINO AWARE. PAGE PLACED FOR DR MERINO TO CALL DAUGHTER. PT CONTINUES TO HAVE LOW GRADE FEVER. COVID-19 RESULT IS POSTIVE. SLOWLY PROGRESSING TOWARDS POC. WILL CONTINUE TO MONITOR.
[2020-03-24 15:04] LABS: ABSOLUTE NEUTROPHILS 9.9 thou/uL (1.4-8.2); BASOPHILS 0.6 % (0.0-2.0); EOSINOPHILS 6.3 % (0.0-3.0); HEMOGLOBIN 7.6 gm/dL (12.0-15.0); LYMPHOCYTES 12.4 % (24.0-44.0); MCH 28.3 pg (26.0-34.0); MCHC 33.1 g/dL (28.0-37.0); MCV 85.7 fL (80.0-100.0); MONOCYTES 8.4 % (1.0-8.0); PLATELET COUNT 157 thou/uL (150-400); POLYS 72.3 % (36.0-66.0); RBC 2.68 mil/uL (4.20-5.00); RDW 16.1 % (10.5-14.5); WBC 13.7 thou/uL (4.0-11.0)
--- NOTE | 2020-03-24 16:31 | NUR ---
SUZAN reviewed chart and spoke with nursing and attending physician. Pt remains in Enhanced Isolation. Repeat COVID-19 test is positive. Surgery consulted to evaluate pt for trach/peg placement and discuss with family. Pt's family requested to speak with physician regarding plan of care. Pt able to follow simple commands. SW received call from Harini at [facility] ( ) to request update and discuss discharge plan. SW to follow up with pt's family regarding LTAC placement after decision has been made regarding trach/peg placement. SUZAN is following to assist as needed with discharge planning.
[2020-03-25] VITALS (23 sets, daily range): BP systolic 90–124; BP diastolic 53–78
--- NOTE | 2020-03-25 06:45 | NUR ---
Assessment and intervention documented. Pt on vent tolerating well with minimal sedation. Has valuable yes and no's when asked questions. Follows commands intermittently. Plan is to trach and peg. Covid results still positive. No adverse events throughout the night. Patient stable progressing toward goals.
--- NOTE | 2020-03-25 11:22 | NUR ---
Nurse updated patients sister this morning, answered her questions. She denied further questions and thanked staff for taking care of her. Nurse then talked to patients daughter, Jaz, and updated her on patients plan of care and status. Nurse talked in length about reasoning for trach and peg, answered her questions. She expressed she will call social work services and her family to update them. Nurse will ask Dr. Alves to call Jaz when able today. Nurse to continue to monitor patient status.
--- NOTE | 2020-03-25 11:40 | NUR ---
ON-GOING ASSESSMENT: CM REVIEWED CHART AND SPOKE WITH ATTENDING. PT REMAINS IN ENHANCED ISOLATION DUE TO COVID POSITIVE. PT REMAINS ON THE VENTILATOR AND LIKELY NEEDS TRACH/PEG. SURGERY HAS BEEN CONSULTED ON 03/23 AND AWAITING INPUT. PER PULM PHYSICIAN NOTE HE HAS SPOKE WITH PATIETNS DAUGHTERS WHO ARE AGREEABLE WITH PLAN. WILL AWAIT INPUT FROM SURGERY. IF PATIENT DOES GET TRACH/ PEG, PT WILL NEED LTAC PLACEMENT. CM WILL CONTINUE TO FOLLOW TO ASSIST NEEDED AND AWAIT INPUT FROM SURGERY.
[2020-03-26] VITALS (24 sets, daily range): BP systolic 92–120; BP diastolic 55–74
--- NOTE | 2020-03-26 08:07 | NUR ---
SEE [employer] FOR ASSESSMENTS. PT PROGRESSING TOWARDS GOALS. PT REMAINS ALERT, NODS YES/NO APPROPRIATELY. UNDERSTANDS CHAIN OF EVENTS.CONT WITH PROFOOUND WEAKNESS, ABLE TO LIFT HEAD FAR OFF OF PILLOW.NO MOVEMENT OF HANDS, OR FEET. MAURICIO TUBE FEEDINGS. REMAINS AFEBRILE, CONT ON VENT WITH MIMINAL FI02 NEED OF 30%. OCCAS COUGH. MINIMAL SECRETIONS. WILL DISCUSS CPAP WITH ONCOMING NURSE. CONT PLAN F CARE
--- NOTE | 2020-03-26 15:20 | NUR ---
SUZAN reviewed chart and spoke with attending physician. Pt remains in Enhanced Isolation due to COVID-19. Pt is currently intubated. Surgery following for trach/peg placement. Repeat COVID test ordered today. Test results are pending. SUZAN contacted [facility] bilingual patient support caseworker, Harini, to provide update and request in-network LTAC facilities after trach/peg have been placed. SUZAN received call back from Harini. SUZAN spoke with pt's dtr, Jaz, via phone. Discussed eventual trach/peg placement and LTAC placement. Pt's dtr had questions regarding eventual LTC placement if pt is unable to come off the ventilator. SUZAN informed Jaz that [facility] is the only chronic vent unit in the area. Pt's dtr and family are hopeful that pt will be able to be weaned off the vent at LTAC. No weekend discharge planned. SUZAN is following to assist as needed with discharge planning.
--- NOTE | 2020-03-26 19:59 | NUR ---
RECEIVED PT'S CARE AROUND 729; PT. ON BED; AWAKE; ALERT; DURING AM ASSESSMENT ALERT TO PERSON & PLACE; ABLE TO ANSWER YES/NO QUESTIONS; FOLLOWED COMMANDS; AM MEDICATIONS GIVEN; NO C/O PAIN; THROUGH THE DAY TURNED FROM SIDE TO SIDE; COVID 19 TEST BACK POSITIVE; DR. SERNA NOTIFIED DURING ROUNDINGS; NO NEW ORDERS; SR ON THE MONITOR; MEDICATION TITRATE DOWN; CALM; COOPERATIVE; ASSESSMENT CHARGED; FOLLOWING POC; PASSED ON REPORT;
[2020-03-26 21:13] LABS: PROTIME 10.6 Seconds (9.3-11.4)
[2020-03-27] VITALS (23 sets, daily range): BP systolic 95–125; BP diastolic 55–76
--- NOTE | 2020-03-27 06:00 | NUR ---
DR SAMS HERE. WILL PERFORM ANOTHER COVID 19 TEST THIS AM.
--- NOTE | 2020-03-27 06:00 | NUR ---
REMAINS INTUBATED AND LIGHTLY SEDATED WITH PRECEDEX AT 1 MCG. FOLLOWS SIMPLE COMMANDS. REMAINS VERY WEAK SINUS RHYTHM. 1000 CC UO THIS SHIFT AND 50 CC LIQUID STOOL FROM FLEXISEAL. BATHED. PT IS SC FOR A TRACH AND PEG TUBE NEXT WEEK. WILL CONT TO [id number].
[2020-03-27 06:27] LABS: POLYS 75.8 % (36.0-66.0)
[2020-03-27 06:29] LABS: ABSOLUTE NEUTROPHILS 9.1 thou/uL (1.4-8.2); BASOPHILS 0.4 % (0.0-2.0); HEMATOCRIT 21.5 % (37.0-47.0); LYMPHOCYTES 11.3 % (24.0-44.0); MCH 28.1 pg (26.0-34.0); MCHC 32.5 g/dL (28.0-37.0); MCV 86.3 fL (80.0-100.0); MONOCYTES 7.5 % (1.0-8.0); PLATELET COUNT 182 thou/uL (150-400); RBC 2.48 mil/uL (4.20-5.00); RDW 16.8 % (10.5-14.5)
[2020-03-27 06:36] LABS: CALCIUM 8.4 mg/dL (8.5-10.1); CREATININE 0.7 mg/dL (0.6-1.0); POTASSIUM 3.9 mmol/L (3.5-5.1)
--- NOTE | 2020-03-27 14:18 | NUR ---
ASSUMED CARE @ 0700 03/27/20, PT ASSESSMENTS AND VSS COMPLETE PER ICU PROTOCOL AND DOCUMENTED. DR VELIZ AND DR MERINO HERE THIS AM TO ROUND, NO NEW ORDERS RECIEVED. DR SAMS INFORMED ABOUT THE SARAH ALBICANS IN URINE, RN TOLD THAT HE WOULD MONITOR, NO NEW ORDERS AT THIS TIME. ANNE (DAUGHTER) AND NITA (SISTER) UPDATED ABOUT CARE.
[2020-03-28] VITALS (23 sets, daily range): BP systolic 88–130; BP diastolic 53–68
--- NOTE | 2020-03-28 01:35 | NUR ---
ASSESSMENT: PT BASICALLY IS STATU QUO. TESTED POSITIVE FOR COVID-19 OF TODAY 03/27/20. Sepideh PATEL NOTIFIED OF RESULTS, NO ORDERS GIVEN. PT REMAIN ALERT AND ORIENT TIMES TWO-THREE. ABLE TO FOLLOW SIMPLE COMMANDS. VSS, AFEBRILE. SR PER MONITOR. FECAL TUBE INTACT WITH SEMI-LIQUID BROWN STOOL. DENIES PAIN. VENT SETTINGS UNCHANGED TV-550 PEEP-5 FIO2-30% AND RATE-20. SO FAR NO CHANGES TO PERCEDEX. PEREZ PATENT WITH DK YELLOW URINE. PLAN: TO TRACH AND PLACE PEG TUBE NEXT WEEK, IF PT TEST NEGATIVE WITH COVID-19. POOR PROGRESS TOWARDS DC GOALS, WILL CONTINUE TO MONITOR.
[2020-03-28 09:31] LABS: ABSOLUTE NEUTROPHILS 7.7 thou/uL (1.4-8.2); BASOPHILS 0.4 % (0.0-2.0); EOSINOPHILS 8.9 % (0.0-3.0); HEMATOCRIT 21.5 % (37.0-47.0); LYMPHOCYTES 13.7 % (24.0-44.0); MCH 28.4 pg (26.0-34.0); MCHC 32.7 g/dL (28.0-37.0); MCV 86.9 fL (80.0-100.0); MONOCYTES 6.8 % (1.0-8.0); PLATELET COUNT 189 thou/uL (150-400); POLYS 70.2 % (36.0-66.0); RBC 2.48 mil/uL (4.20-5.00); RDW 16.8 % (10.5-14.5)
[2020-03-28 09:47] LABS: CALCIUM 8.5 mg/dL (8.5-10.1); CREATININE 0.7 mg/dL (0.6-1.0); POTASSIUM 3.8 mmol/L (3.5-5.1); TOTAL BILIRUBIN 0.4 mg/dL (<0.1-1.0); TOTAL PROTEIN 6.5 g/dL (6.4-8.2)
--- NOTE | 2020-03-28 17:36 | NUR ---
ASSUMED CARE OF PT AT 0700. PT ALERT AND ORIENTED TO SITUATION. ABLE TO NOD TO SIMPLE QUESTIONS. SOMEWHAT RESTLESS THIS MORNING. VENT SETTINGS UNCHANGED. COARSE LUNG SOUNDS. STOOL SUBMITTED TO LAB. GOOD OUTPUT. FAMILY UPDATED TO PLAN OF CARE. VITALS STABLE. WILL CONT TO MONITOR.
[2020-03-29] VITALS (24 sets, daily range): BP systolic 89–120; BP diastolic 51–70
--- NOTE | 2020-03-29 05:42 | NUR ---
ASSESSMENT: PT REMAIN ALERT AND ORIENT TO SITUATION/PLACE AND TIME. SEEMS MORE DEPRESSED THIS SHIFT IN COMPARISON TO LAST SHIFT. PT STATE THAT SHE FELT NAUSEA TOWARDS THE MORNING, ORDER FOR ZOFRAN GIVEN. PT RAN A LOW GRADE TEMP WITH MAX BEING 100.4 PRECEDEX WAS TITRATED DOWN TO 1MCG/KG/HR...30.05 ML/HR. TWO DOSES OF TYLENOL GIVEN WITH MINIMAL RESULTS. PEREZ AND FECAL TUBE BOTH PATENT. UO ADEQUATE. NO RESIDUALS PER TF. COVID-19 TEST IS TO BE DONE TODAY. VENT SETTINGS UNCHANGED. TF INFUSING WITHOUT DIFFICULTY. PLAN: TO TRACH AND PEG ONCE TEST FOR COVID IS NEGATIVE. VERSED GIVEN EARLIER DURING THE SHIFT R/T RESTLESSNESS AND FOR SLEEP. SLOW PROGRESS TOWARDS DC GOALS. WILL CONTINUE TO MONITOR.
--- NOTE | 2020-03-29 09:22 | NUR ---
ALERT AND NODS TO Y/N QNS. VITALS STABLE, RESTLESS, AGITATED AND THRASHING MOVING HEAD SIDE TO SIDE AND RESISTING CARE. MEDICATED FOR PAIN WITH PRN MEDS AND PRECEDEX INCREASED TO 1.2MCG. RE-SWABBED FOR COVID 19 THIS MORNING. TOLERATING TUBEFEEDING WITH MINIMAL RESIDUALS. TOLERATING VENT SETTINGS, NO CPAP AT THIS TIME. FMS AND PEREZ NOTED DOCUMENTED. WILL CONTINUE WITH POC.
--- NOTE | 2020-03-29 10:55 | NUR ---
DAUGHTER ANNE CALLED AND WAS UPDATEDJ BY RN, NO SPECIFIC QNS AT THIS TIME.
--- NOTE | 2020-03-29 12:31 | HC ---
[facility] [place] [address] CONSULTATION Name: BERNARDO MCDONNELL Room #: 239-P ADM IN M.R.#: [id number] Admission: 03/02/20 Attend Phys: Shaji Santoyo MD Discharge: Date of : 50 Report #: [id number] THIS REPORT FOR: cc: Samina Godwin MD,Samina Arenas,Jona Gutierrez MD ~ CC: Shaji Godwin DATE OF SERVICE: 03/24/2020 CONSULTING PHYSICIAN: Dr. Arenas. REASON FOR CONSULTATION: Trach and PEG. ASSESSMENT: 1. Respiratory failure. 2. Profound weakness/critical care myopathy. RECOMMENDATIONS: 1. Thank you very much for this consultation. I will follow along. 2. Current local policy is for intubation, a duration of 21 days and 2 negative COVID screening tests. Unfortunately, she had a positive test today. 3. I will discuss further plans with Critical Care team and OR. May not be able to perform trach and PEG as early as I had hoped to. I had originally planned to schedule her for tomorrow for surgery. HISTORY OF PRESENT ILLNESS: The patient is a 69-year-old female who is intubated in the ICU with COVID-19 pneumonia. She is on minimal vent settings, but she is profoundly weak. She is on therapeutic Lovenox. General Surgery was consulted for placement of trach and PEG. PAST MEDICAL HISTORY: Obtained from the chart: 1. Hypertension. 2. Arthritis. 3. GERD. 4. Morbid obesity. PAST SURGICAL HISTORY: Unobtainable, but the patient does report that she has had a hysterectomy and neck surgery in the past while she was on Precedex and intubated. SOCIAL HISTORY: Smokes marijuana occasionally. No tobacco use. Occasional alcohol use. [facility] [address] [place] [address] CONSULTATION Name: BERNARDO MCDONNELL Room #: 239-P [facility] IN .R.#: [id number] Admission: 03/02/20 Attend Phys: Shaji Santoyo MD Discharge: Date of : 50 Report #: [id number] FAMILY HISTORY: Unobtainable. REVIEW OF SYSTEMS: Unobtainable. PHYSICAL EXAMINATION: VITAL SIGNS: Temperature is 37.8, pulse 91, respiratory rate 23, blood pressure 106/62, pulse ox 92%. GENERAL: No apparent distress, alert, intubated, responding to questions with head shaking. HEENT: PERRLA, EOMI, MMM, NCAT. NECK: Supple. No LAD. CARDIOVASCULAR: Regular rhythm and rate. Hemodynamically stable. Normal capillary refill. Regular rhythm and rate. Hemodynamically stable. Normal capillary refill. PULMONARY: Nonlabored. Clear to auscultation bilaterally. ABDOMEN: Soft and nontender, morbidly obese. Midline infraumbilical incision present. EXTREMITIES: Calves soft, nontender, no edema. SKIN: No rashes or bruises. PSYCHIATRIC: Normal mood and affect Normal mood and affect. NEUROLOGICAL: Grossly intact. CN II-XII grossly intact. MUSCULOSKELETAL: Strength is not assessable due to profound critical care myopathy. LYMPHATICS: No cervical, inguinal, or supraclavicular lymphadenopathy. LABORATORY DATA: White blood count 13.7, hemoglobin 7.6, hematocrit 23, platelets 157. Sodium 141, potassium 3.7, creatinine 0.8. <ELECTRONICALLY SIGNED> By: Jona Arenas MD 03/29/20 1231 [id number] 1920 Joan Arenas MD /nt
--- NOTE | 2020-03-29 12:59 | NUR ---
SISTER FROM [facility] CALLED AND UPDATED BY SUDARSHAN.
[2020-03-30] VITALS (23 sets, daily range): BP systolic 102–165; BP diastolic 62–131
--- NOTE | 2020-03-30 01:35 | NUR ---
ASSESSMENT: PT REMAIN ALERT AND ORIENT TIMES TWO-THREE. FORGETFUL AT TIMES TO SITUATION. VSS, AFEBRILE. DENIES PAIN BUT C/O FEELING NAUSEA AT TIMES. PT WAS INTERMITTANTLY RESTLESS AND THRASHING AROUND. VERSED GIVEN WITH MINIMAL RESULTS. PRECEDEX AT 1.2MCG/KG/MIN. VENT SETTINGS UNCHANGED. TF INFUSING WITHOUT DIFFICULT VIA OG GOAL RATE 65ML/HR. SR PER MONITOR. POOR PROGRESS TOWARDS DC GOALS, WILL CONTINUE TO MONITOR.
--- NOTE | 2020-03-30 09:55 | NUR ---
Pt Na and Cl levels are starting to increase again following recent decrease in water flushes. Recommend increase to 300ml every 6hr if approval from physician.
--- NOTE | 2020-03-30 15:58 | NUR ---
SW reviewed chart and spoke with nursing and attending physiican. Pt remains in Enhanced Isolation due to COVID-19. Pt's repeat tests on 03/26 and 03/29 were postiive. Pt remains intubated. Cpap trials continues. Pt will need trach and peg tube placement pending arrangements with surgery. SW to discuss LTAC placement with pt's family when arrangements have been made. SW is following to assist as needed with discharge planning.
--- NOTE | 2020-03-30 18:10 | NUR ---
PT MORE AGITATED TODAY SWATING HAZARDOUS MATERIALS TANKER DRIVER HANDS AWAY AND REFUSING TURNS AND ORAL CARE. SPOKE WITH DR. MERINO THIS EVENING AND INSTRUCTED TO RESTART PT ON PROPOFOL GTT. WILL CONTINUE TO ASSESS.
[2020-03-31] VITALS (24 sets, daily range): BP systolic 95–140; BP diastolic 64–83
[2020-03-31 14:48] LABS: ABSOLUTE NEUTROPHILS 5.4 thou/uL (1.4-8.2); BASOPHILS 0.6 % (0.0-2.0); EOSINOPHILS 15.8 % (0.0-3.0); HEMATOCRIT 22.2 % (37.0-47.0); HEMOGLOBIN 7.3 gm/dL (12.0-15.0); LYMPHOCYTES 16.6 % (24.0-44.0); MCH 28.3 pg (26.0-34.0); MCHC 33.1 g/dL (28.0-37.0); MCV 85.6 fL (80.0-100.0); MONOCYTES 5.7 % (1.0-8.0); PLATELET COUNT 220 thou/uL (150-400); POLYS 61.3 % (36.0-66.0); RBC 2.59 mil/uL (4.20-5.00); RDW 16.1 % (10.5-14.5); WBC 8.8 thou/uL (4.0-11.0)
[2020-03-31 14:52] LABS: URINE BILIRUBIN NEGATIVE (Negative); URINE BLOOD 1+ (Negative); URINE CLARITY CLEAR; URINE COLOR YELLOW; URINE GLUCOSE-RANDOM* NEGATIVE (Negative); URINE KETONES NEGATIVE (Negative); URINE LEUKOCYTES-REFLEX 1+ (Negative); URINE NITRITE-REFLEX NEGATIVE (Negative); URINE PROTEIN (DIPSTICK) TRACE (Negative); URINE SPECIFIC GRAVITY 1.015 (1.005-1.035); URINE UROBILINOGEN 0.2 E.U./dl (0.2-1.0)
[2020-03-31 15:03] LABS: CREATININE 0.6 mg/dL (0.6-1.0); MAGNESIUM 1.9 mg/dL (1.8-2.4); POTASSIUM 3.5 mmol/L (3.5-5.1); TOTAL BILIRUBIN 0.7 mg/dL (0.2-1.0); TOTAL PROTEIN 6.5 g/dL (6.4-8.2)
[2020-03-31 15:05] LABS: APTT 28.5 Seconds (24.5-32.8); PROTIME 10.7 Seconds (9.3-11.4)
[2020-03-31 15:16] LABS: YEAST-REFLEX Present (None Seen)
[2020-03-31 15:17] LABS: BACTERIA-REFLEX 1-9 Few /HPF (None Seen); CASTS None Seen /LPF (None Seen); SQUAMOUS 0-3 Few /LPF (0-3); URINE RBC 3-10 Few /HPF (0-2); URINE WBC-REFLEX 6-15 Few /HPF (0-5)
--- NOTE | 2020-03-31 16:58 | NUR ---
SUZAN reviewed chart and spoke with nursing and attending physician. Pt remains in Enhanced Isolation due to COVID-19. Plan is for pt to have trach/peg placement tomorrow per surgery. SUZAN spoke with pt's dtr, Jaz, to provide update and discuss post-acute placement: LTAC facilities for continued vent weaning/medical mgmt./therapy. Pt's insurance is contracted with [facility]. Pt's dtr is agreeable with referral to [facility]. SUZAN faxed referral to [facility] and spoke with Doris [facility] liaison, to notify of new referral. Additional clinical info to be faxed following trach/peg placement. SUZAN is following to assist as needed with discharge planning.
--- NOTE | 2020-03-31 19:33 | NUR ---
PT IS CONTIUNING ET TUNE WITH VENT , A/C MODE , O2 30%, PT'S VS ARE STABLE, PT IS ON MEDICATIONS ( PRECEDEX AND PROPOFOL ) SEDATION TO ACHIEVE RASS OF -1 OR 0 BY TITRATION, RN HAS CALLED DR TO REPORT PT'S N/V , NEW ORDER HOLD TUBE FEEDING UNTILL NEW ORDER RESTAT, PT WILL HAVE TRACH AND PEG TUBE PLACEMENT AT 04/01/20, PT'S DAUGHTER HAS CONSENT BY PHONE, PT IS RELAXING NOW. PT IS CONTINUING ENHANCED PRECAUTION FOR POSITIVE COVID-19.
--- NOTE | 2020-03-31 20:37 | NUR ---
THERE WAS NOTED PATIENT VOMITING ON PREVIOUS SHIFT, OG TUBE PLACED TO LOW INTERMITTENT SUCTION.
[2020-04-01] VITALS (37 sets, daily range): BP systolic 87–143; BP diastolic 51–88
[2020-04-01 05:50] LABS: HEMOGLOBIN 7.5 gm/dL (12.0-15.0); MCH 28.3 pg (26.0-34.0); MCHC 32.5 g/dL (28.0-37.0); MCV 86.9 fL (80.0-100.0); RBC 2.64 mil/uL (4.20-5.00); RDW 16.6 % (10.5-14.5)
[2020-04-01 05:54] LABS: CALCIUM 8.6 mg/dL (8.5-10.1); CREATININE 0.6 mg/dL (0.6-1.0); MAGNESIUM 1.8 mg/dL (1.8-2.4); POTASSIUM 3.9 mmol/L (3.5-5.1)
--- NOTE | 2020-04-01 06:19 | NUR ---
PATIENT ON MODERATE SEDATION, OPENS EYES DURING SEDATION VACATION, DOES NOT FOLLOW COMMANDS. SINUS RHYTHM ON MULTIPLEX OPERATOR. 30% FIO2 ON VENTILATOR O2 SAT REMAINED ABOVE 90%. RECTAL TUBE IN PLACE. PEREZ PATENT WITH GREATER THAN 30ML OUTPUT/HR. SPOKE WITH SISTER NITA AT 0300 AND UPDATED ON PATIENTS PLAN OF CARE. PLAN FOR SURGERY TODAY, CONSENT SIGNED, CHLORHEXIDINE BATH COMPLETED, LINEN CHANGED. NO SIGN OF ACUTE DISTRESS NOTED AT THIS TIME. WILL CONTINUE TO MONITOR.
--- NOTE | 2020-04-01 08:30 | NUR ---
[id number]- SEDATION VACATION PERFORMED. Nurse updated patient on reasoning for being here, where she is, and that her family checks on her every day and loves her. Her facial expression appeared shocked as to why she was here. Neuro: She becomes restless with sedation vacation. She denied pain. She would not follow commands. She nodded no when RN asked her to automatic pinsetter adjuster with her hands. However, she did lift her arms off the bed. Vital signs: RR Went From Teens To Upper 20'S HEART RATE 60'S-70'S OXYGENATION >95% Plan for Trach and Peg around 1300 today.
--- NOTE | 2020-04-01 11:01 | NUR ---
1055- Nurse updated patients daughter Jaz on plan of care and surgery time. Her questions were answered.
--- NOTE | 2020-04-01 13:20 | NUR ---
1318- Patient left to OR for Trach and Peg tube placement. Anesthesia with CLINICAL TRIAL ASSOCIATE called family member for anesthesia consent, Sadaf HEATON varified consent with CLINICAL TRIAL ASSOCIATE and patients family member.
--- NOTE | 2020-04-01 14:34 | NUR ---
SUZAN reviewed chart and spoke with attending physician. Pt to have trach and peg placed this afternoon. SUZAN followed up with [facility] liaison regarding new referral. SUZAN spoke with Harini at [facility] regarding discharge plan. SUZAN is following to assist as needed with discharge planning.
--- NOTE | 2020-04-01 14:50 | NUR ---
1450- PATIENT BACK FROM OR. SEDATED ON VENT WITH TRACH. TRACH INTACT AND NO OOZING NOTED. PEG TUBE INTACT AND CLAMPED
--- NOTE | 2020-04-01 15:32 | NUR ---
1530- DR. STALLWORTH HERE, PATIENT HAD MODERATE AMOUNT OF GREEN LIQUID COMING FROM MOUTH ONTO THE BED. NURSE SUCTIONED PATIENTS MOUTH. DR. STALLWORTH EXPRESSED TO PLACE PEG TUBE TO LIS AND LEAVE NPO FOR TONIGHT.
--- NOTE | 2020-04-01 16:59 | NUR ---
9063- nurse updated patients daughterJaz on how proceedure went. Nurse to continue to answer family questions and update them on status as they call.
--- NOTE | 2020-04-01 17:23 | NUR ---
PATIENT PROGRESSING TOWARDS PLAN OF CARE EVIDENCED BY OXYGEN SATURATIONS >95% POST TRACH PLACEMENT. PATIENT HAD GREEN LIQUID NOTED FLOWING OUT OF MOUTH POST RECOVERY, SEE PREVIOUS NOTE. PEG TUBE TO LOW INTERMITTENT SUCTION AT THIS TIME. SHE IS DROWSY, HOWEVER WILL WAKE UP AND BECOME AGGITATED, WAIVING AT RN AND NODDING VIGOROUSLY. REASSURANCE PROVIDED. PROPOFOL AND PRECEDEX IN PLACE AND TO BE WEANED DOWN TOLERATED.
[2020-04-02] VITALS (26 sets, daily range): BP systolic 82–137; BP diastolic 46–89
[2020-04-02 06:45] LABS: HEMATOCRIT 24.2 % (37.0-47.0); HEMOGLOBIN 7.8 gm/dL (12.0-15.0); MCH 28.2 pg (26.0-34.0); MCHC 32.3 g/dL (28.0-37.0); MCV 87.1 fL (80.0-100.0); RBC 2.77 mil/uL (4.20-5.00); RDW 15.9 % (10.5-14.5); WBC 9.6 thou/uL (4.0-11.0)
[2020-04-02 06:53] LABS: CALCIUM 8.1 mg/dL (8.5-10.1); CREATININE 0.6 mg/dL (0.6-1.0); POTASSIUM 3.3 mmol/L (3.5-5.1)
--- NOTE | 2020-04-02 07:45 | NUR ---
[id number]- SEDATION VACATION WITH ALL SEDATIVES COMPLETELY OFF. PATIENT NODS SEEMINGLY APPROPRIATE. NODDED NO TO IF SHE WERE WARM, PAIN, DISCOMFORT, IF SHE IS AWARE OF WHERE SHE IS.. SHE NODDED YES TO NOT KNOWING WHY SHE WAS AT THE HOSPITAL, THAT SHE WAS COMFORTABLE, AND IF SHE WERE COLD. HEART RATE : 80-90 RR: 20-40'S OXYGENATION: >95% SBP>90 [facility] WILL UPDATE PHYSICIANS THEY ROUND.
--- NOTE | 2020-04-02 08:03 | NUR ---
Recommendations: new TF goal of vital AF 1.2 is 50ml/hr since pt back on propofol. Once IVF discontinued, recommend 300ml water flush every 6hr
--- NOTE | 2020-04-02 09:50 | NUR ---
0950- DR. VELIZ ROUNDED ON PATIENT. HE EXPRESSED CONCERN OF PATIENTS DROWSINESS AND NEUROLOGIC STATUS. NURSE UPDATED PHYSICIAN IN REGARDS TO PATIENTS NEUROLGIC STATUS WITH SEDATION VACATION AND INCREASED WORK OF BREATHING. WILL CONTINUE TO MONITOR.
--- NOTE | 2020-04-02 10:50 | NUR ---
1050- DR. MIMS ROUNDED ON PATIENT. NURSE UPDATED HIM ON PATIENT PROGRESS AND TUBE FEEDING RATE. PHYSICIAN EXPRESSED TO KEEP INSULIN ORDERS IS UNTIL TUBE FEEDING AT A HIGHER RATE WITH CONTINUED CONTROLLED GLUCOSE LEVELS. NURSE TO CONTINUE TO MONITOR PATIENT STATUS. TUBE FEEDING CURRENTLY AT 10ML/HOUR.
--- NOTE | 2020-04-02 13:19 | NUR ---
1200- NURSE UPDATED DR. MERINO IN REGARDS TO PATIENT STATUS WHEN SEDATION LIGHTENED. PROPOFOL WAS ALARMING FOR BOTTLE CHANGE, RR 40-52 BPM, PATIENT WAS TEARFUL/THRASHING HEAD AROUND, MOVING BILATERAL ARMS. VENTILATOR ALARMING. WITH MINIMAL PAUSE IN PROPOFOL, PT DISTRESSED. NURSE PROVIDED REASSURANCE WITH OUT SUCCESS. PER DR. MERINO, PLAN TO KEEP HER SEDATED AT THIS TIME FOR A FEW MORE DAYS OF HEALING. WILL TITRATE SEDATION FOR VENTILATOR MANAGEMENT AND PATIENT COMFORT ABLE.
--- NOTE | 2020-04-02 15:34 | NUR ---
1530- Nurse talked with DR. Arenas secondary to when RN turned patient, it looked as though she vomited. Patient nodded yes to nausea, however, no to abdominal pain/or generalized pain. She nodded yes to being otherwise comfortable. She denied feeling cold or hot. Per DR. Arenas, start reglan and keep tube feedings at 10ml/hr for now.
--- NOTE | 2020-04-02 16:45 | NUR ---
SUZAN reviewed chart and spoke with attending physician. Pt is s/p trach/peg placement. Pt remains in Enhanced Isolation for COVID-19. Repeat test for today is positive. SUZAN faxed operative report and clinical updates to [facility] liaison for review. Pt will need two negative COVID tests prior to admission. SUZAN spoke with pt's dtr, Jaz, via phone to provide update. No weekend discharge planned. Jaz spoke with [facility] liaison and is agreeable with plan for pt to d/c to [facility] when medically stable and insurance authorization has been obtained. SUZAN is following to assist as needed with discharge planning.
[2020-04-03] VITALS (24 sets, daily range): BP systolic 91–140; BP diastolic 54–82
--- NOTE | 2020-04-03 18:43 | NUR ---
PT SEDATED ON VENT. VENT SETTINGS UNCHANGED. TUBE FEEDING INCREASED TO 20ML/HR PER DR FLOYD, PT HAS NO S/S N/V, RESIDUALS ARE < 5ML. PT IS BEGINING TO REFUSE CARE SUCH TURNS/ACCU-CHECK/ORAL CARE, PT EDUCATED ON THEIR IMPORTANCE. PROBABLE CPAP TRIAL TOMORROW AM. PT PROGRESSING TOWARDS POC. WILL CONTINUE TO MONITOR.
[2020-04-04] VITALS (22 sets, daily range): BP systolic 91–160; BP diastolic 51–86
--- NOTE | 2020-04-04 05:01 | NUR ---
PATTIENT SLEPT MOST OF SHIFT, SEDATED ON VENT. PATIENT SHAKING HEAD NO EVERYTIME NURSE ENTERS ROOM FOR CARE. REASSURED PATIENT AND ASSIST TO MAKE COMFORTABLE. WORKING ON GOALS AND PLAN OF CARE FOR NOC. REPOSITIONED NEEDED AND BED REMAINS IN ROTATION MODE. PROGRESSING SLOWLY TOWARDS DISCHARGE GOALS. CONTINUE TO REASSURE AND ASSES CLOSELY.
[2020-04-04 06:38] LABS: ABSOLUTE NEUTROPHILS 8.8 thou/uL (1.4-8.2); BASOPHILS 0.4 % (0.0-2.0); EOSINOPHILS 3.9 % (0.0-3.0); HEMATOCRIT 24.5 % (37.0-47.0); HEMOGLOBIN 7.9 gm/dL (12.0-15.0); LYMPHOCYTES 19.2 % (24.0-44.0); MCH 27.6 pg (26.0-34.0); MCHC 32.3 g/dL (28.0-37.0); MCV 85.4 fL (80.0-100.0); MONOCYTES 5.9 % (1.0-8.0); PLATELET COUNT 276 thou/uL (150-400); POLYS 70.6 % (36.0-66.0); RBC 2.86 mil/uL (4.20-5.00); RDW 16.3 % (10.5-14.5); WBC 12.5 thou/uL (4.0-11.0)
[2020-04-04 06:54] LABS: CALCIUM 8.7 mg/dL (8.5-10.1); CREATININE 0.6 mg/dL (0.6-1.0); MAGNESIUM 1.6 mg/dL (1.8-2.4)
[2020-04-04 08:23] LABS: POTASSIUM 2.9 mmol/L (3.5-5.1)
--- NOTE | 2020-04-04 16:35 | NUR ---
PT SEDATED ON VENT. VENT SETTINGS UNCHANGED. PT HAD ONE BOUT OF EMESIS (COFFEE GROUNDS/BILE). CXR AND KUB ORDERED TO RULE OUT ASPIRATION/ILLIUS. TUBE FEED TURNED OFF AND GEN SURG/DR MERINO NOTIFIED. ORDERS GIVEN TO HOLD TF AND ALLOW PEG TO DRAIN TO GRAVITY. (150 ML OUT OF PEG INIATIALLY). CENTRAL LINE DRESSING WAS CHANGED BY RN. ADEQUATE URINE OUTPUT. NO BM TODAY, PT DOES HAVE A SMALL AMOUNT OF WHAT LOOKS TO BE BOWEL CONTENTS COMING FROM MOUTH, PHYSICAIN AWARE. PT INCREASINGLY MORE TACHYCARDIC/TACHYPNEIC/RESTLESS. FEBRILE 100.5 F @ 1220. POTASSIUM REPLACED PER HOSPITAL PROTOCAL. PT STARTED ON D5 1/2 NS DUE TO TUBE FEEDINGS BEING HELD. SLOWLY PROGRESSING TOWARDS POC. WILL CONTINUE TO MONITOR.
[2020-04-05] VITALS (10 sets, daily range): BP systolic 93–114; BP diastolic 57–73
[2020-04-05 05:16] LABS: BE(vivo) -2.7 mmol/L (-2 to +3); PCO2 37.2 mmHg (35.0-45.0); pH 7.389 (7.360-7.450); sO2 95.5 % (92.0-98.0)
--- NOTE | 2020-04-05 06:01 | NUR ---
REMAINS INTUBATED AND SEDATED WITH PRECEDEX AND PROPOFOL GTTS UO 550 CC THIS SHIFT. ZERO OUT FROM, PEG TUBE SINUS RHYTHM. WITH SAEDATION VACATION PT JUST COUGHED ALOT HAD A SMALL AMT OF BILE EMESIS BATH. PROGRESSING TOWARD GOALS D
[2020-04-05 06:13] LABS: HEMATOCRIT 22.7 % (37.0-47.0); HEMOGLOBIN 7.3 gm/dL (12.0-15.0); MCH 27.5 pg (26.0-34.0); MCHC 32.1 g/dL (28.0-37.0); MCV 85.7 fL (80.0-100.0); RBC 2.65 mil/uL (4.20-5.00); RDW 16.3 % (10.5-14.5)
[2020-04-05 06:25] LABS: CALCIUM 8.3 mg/dL (8.5-10.1); CREATININE 0.5 mg/dL (0.6-1.0)
--- NOTE | 2020-04-05 16:21 | NUR ---
SW reviewed chart and spoke with nursing and attending physician. Pt remains in Enhanced Isolation due to COVID-19. Pt is s/p trach/peg placement. Pt will need two negative COVID-19 tests in order to be accepted to [facility]. SW provided update to [facility] liaison. Updated clinical info faxed to [facility] for review. SUZAN is following to assist as needed with discharge planning.
--- NOTE | 2020-04-05 18:47 | NUR ---
PT SEDATED ON VENT. VENT SETTINGS UNCHANGED. ASSESSMENTS CHARTED. ADEQUATE UOP. PT HAD CPAP TRIAL FOR APPROXIMETELY 3 HOURS THIS AM. TOLERATED WELL. SLIGHTLY TACHYPNEIC( 30'S). PROPOFOL DC'D. PRECEDEX GTT IN PLACE. PT AND FAMILY UPDATED AND EDUCATED. PT SLOWLY PROGRESSING TOWARDS POC. WILL CONTINUE TO MONITOR.
--- NOTE | 2020-04-05 22:50 | NUR ---
PT'S U/O FROM [address] JONES NOTIFIED [id number]; HE STATED THAT NEPHROLOGY SIGNED OFF ON PT'S CASE SOME DAYS AGO. THEN PROCEEDED TO ASK ABOUT PT'S BP AND CREATNINE AT THAT TIME WHICH WERE 105/[address] JONES THEN SAID "THATS'S QUITE GOOD, SHE IS FINE." WILL CONTINUE TO CLOSELY MONITOR PT.
[2020-04-06] VITALS (22 sets, daily range): BP systolic 88–129; BP diastolic 53–72
--- NOTE | 2020-04-06 10:43 | NUR ---
Nutrition: TF on hold. When able to resume, REC Vital AF 1.2 at goal 70 mL/hr now that propofol has been discontinued. Unable to reach goal x 7 days due to prior trickle feeds/emesis bout. May need alternative method of nutrition if not tolerating at goal soon.
--- NOTE | 2020-04-06 14:52 | NUR ---
SUZAN reviewed chart and spoke with attending physician. Pt remains in Enhanced Isolation due to COVID-19. Pt's repeat COVID test is positive. Tube feeding is currently on hold due to pt vomiting. Pt to have SBFT today. SUZAN provided updated to [facility] liaison. SUZAN spoke with pt's dtr, Teena, via phone to provide update. Teena and family are all agreeable with plan for pt to discharge to [facility] when medically stable and insurance authorization has been obtained. SUZAN is following to assist as needed with discharge planning.
[2020-04-07] VITALS (23 sets, daily range): BP systolic 90–128; BP diastolic 50–78
--- NOTE | 2020-04-07 09:00 | NUR ---
Patient presently on CPAP trial with 5 cm of PEEP and FiO2 of 30%, tolerating well as resp rate is in the upper 20's and O2 sat is in the upper 90's. Monitor showing NSR without ectopy and BP is stable. Will continue to monitor,
--- NOTE | 2020-04-07 14:00 | NUR ---
Patient placed back on the Vent with same settings at 1320. Patient was incontient of stool. Tube feeding restarted per order via Gastric tube. Patient remains alert, calm and cooperative.
--- NOTE | 2020-04-07 19:00 | NUR ---
Patient progressing towards outcome goals as evident by: Small residual noted with tube feeding and rate increased to 20ml/hr, per order. Tolerated CPAP trial and VSS.
[2020-04-08] VITALS (21 sets, daily range): BP systolic 93–144; BP diastolic 53–90
--- NOTE | 2020-04-08 00:39 | NUR ---
CONTINUES TO HAVE LIQUID STOOLS. SKIN BREAKDOWN DEVELOPING ON MIDLINDE SACRAL AREA. PHOTOGRAPH TAKEN AND PLACED ON CHART.
[2020-04-08 03:58] LABS: BE(vivo) -0.2 mmol/L (-2 to +3); HCO3 24.2 mmol/L (22.0-26.0); PO2 97.6 mmHg (80.0-100.0); pH 7.421 (7.360-7.450); sO2 97.6 % (92.0-98.0)
--- NOTE | 2020-04-08 05:26 | NUR ---
t max tonight 98.1. patient prefers to not be washed and cleaned. she mouthed the word tired, she wants to rest. Bath done quickly and a fecal management placed, to prevent further skin breakdown and liquid stool from constantly being on the skin. she is getting stronger, she is able to plasterer helper equally on both sides and fairly tight. denies pain. she was quiet pleased that her sister called to check in on her tonight. continues on precedex and she awakens very easily, however, she is able to tolerate the ventilator without agitation. she tolerated the insertion of the fecal management system without complaint, she nodded yes that she understood the reason for the device and how is can help. careplan reviewed.
[2020-04-08 06:00] LABS: ABSOLUTE NEUTROPHILS 4.6 thou/uL (1.4-8.2); BASOPHILS 0.6 % (0.0-2.0); EOSINOPHILS 3.8 % (0.0-3.0); HEMATOCRIT 21.4 % (37.0-47.0); LYMPHOCYTES 28.5 % (24.0-44.0); MCH 27.6 pg (26.0-34.0); MCHC 32.4 g/dL (28.0-37.0); MONOCYTES 8.4 % (1.0-8.0); PLATELET COUNT 285 thou/uL (150-400); POLYS 58.7 % (36.0-66.0); RBC 2.52 mil/uL (4.20-5.00); RDW 16.1 % (10.5-14.5); WBC 7.8 thou/uL (4.0-11.0)
[2020-04-08 06:44] LABS: ALBUMIN 1.8 g/dL (3.4-5.0); CALCIUM 8.2 mg/dL (8.5-10.1); CREATININE 0.5 mg/dL (0.6-1.0); TOTAL BILIRUBIN 0.3 mg/dL (0.2-1.0); TOTAL PROTEIN 5.8 g/dL (6.4-8.2)
[2020-04-08 06:45] LABS: POTASSIUM 2.4 mmol/L (3.5-5.1)
--- NOTE | 2020-04-08 13:27 | NUR ---
ALERT AND NODS TO Y/N QNS, VITALS STABLE. ON THE VENT PER TRACH AND DENIES PAIN. TOLERATING TUBEFEEDING AT 20ML/HR AND INCREASED TO 30/HR PER DR. STALLWORTH ORDER. DAUGHTER ANNE CALLED AND UPDATED OVER THE PHONE. THE OTHER DAUGHTER EDGAR SUPPOSED TO COME DOWN FROM 3W TO ICU TO VISIT MOTHER BEFORE DC HOME THIS AFTERNOON OKAYED BY PARVIZ HEATON. ON CPAP SINCE 0800 THIS MORNING AND TOLERATING WELL. WILL CONTINUE WITH POC.
--- NOTE | 2020-04-08 15:08 | NUR ---
PATIENT'S DAUGHTER CAME BY TO VISIT ON HER WAY OUT TO [facility] ACCOMPANIED BY NURSING STAFF.
--- NOTE | 2020-04-08 15:55 | NUR ---
SUZAN reviewed chart and spoke with nursing and attending physician. Pt remains in Enhanced Isolation due to COVID-19. Repeat test to be ordered. Therapy ordered today to evaluate pt. SUZAN left voice message for Harini [facility] to discuss LTAC placement. SUZAN is following to assist as needed with discharge planning.
[2020-04-09] VITALS (23 sets, daily range): BP systolic 128–181; BP diastolic 65–149
--- NOTE | 2020-04-09 04:45 | NUR ---
PT NASEOUS AND EMESIS DURING A BATH, PROVIDED ORAL SUCTION AND SUCTIONED MODERATE AMOUNTS OF THIN YELLOWISH FLUID,HELD TUBE FEEDING, GAVE ZOFRAN , PT ALSO ON REGLAN PER SCHEDULE.
[2020-04-09 07:16] LABS: POTASSIUM 2.9 mmol/L (3.5-5.1)
--- NOTE | 2020-04-09 10:10 | NUR ---
Nutrition: Tube feeds on hold due to emesis this am. Prior rate of 30 mL/hr reached, goal rate of tube feeds is 60 mL/hr. On scheduled reglan. Suggest change IVFs to PPN to supplement as pt without adequate nutrition > 1 week.
--- NOTE | 2020-04-09 10:40 | NUR ---
RN assumed care at 0700. PT appeared to resting in bed comfortably. PT unable to verbalize needs due to trachesotomy however she can shake her head yes/no and follow commands. PT appeared uncomfortable and was noted to dry heave. RN assessed PT's central line and was unable to get any of the lumens to flush or draw blood. RN was successful in placing a 20g peripheral IV in her right antecubital space. PT's potassium level was critical this AM 2.9. RN followed protocol and notified Dr. Garza. RN also notified Dr. Garza that PT was febrile this AM (101.3F), tachycardiac (130s), and was dry heaving. Dr. Garza stated that he would look at her chart and place orders but to continue to hold the tube feedings since PT is actively dry heaving. RN verbalized understanding. Will continue to monitor. High fall precautions in place.
--- NOTE | 2020-04-09 11:06 | NUR ---
VAT CONSULTED TO TROUBLESHOOT RT TL IJ PLACED 03/03/20. PT WILL NEED MANAGER ARCHITECTURE ABX AT AN LTACH SOON AND A TICC IS A MORE APPROPRIATE OPTION THE IJ SITE IS CONSTANTLY COMPROMISED BY HER TRACH TIES AND SECRETIONS. CONSULTED IR FOR A TICC FOR TODAY OR SUNDAY. PT CURRENTLY HAS A PIV IN HER RT AC FOR HER IV MEDS THE IJ IS NEEDING REMOVED. RN ADVISED AND ORDER PLACED.
--- NOTE | 2020-04-09 16:26 | NUR ---
SUZAN reviewed chart and spoke with nursing and attending physician. Pt t remains in Enhanced Isolation due to COVID-19. SUZAN spoke with pt's dtr, Jaz, via phone to discuss alternate LTAC options, as they are able to accept active COVID positive pt Discussed the options and pt's dtr is agreeable with sending insurance info to both [facility]. SUZAN spoke with Harini at [facility], who states her info still shows that [facility] is the only in-network provider for pt's policy. However, if the other LTACs are able to accept, they can request a one time contract. SUZAN faxed face sheet to [facility] and [facility] for insurance verification, as they both accept COVID positive pts. SUZAN did contact [facility] liaison, Yoli, who states they are still not accepting COVID positive pts. [facility] is able to obtain a one time contract with pt's insurance policy. [facility] is also able to accept pt and state they are in-network. SUZAN spoke with pt's dtr, Jaz, to provide update. [facility]ference is [facility] due to location and physician continuity of care. SUZAN faxed referral to LTAC for review and notified [facility] liaison. No weekend discharge planned. SUZAN updated attending physician. SUZAN is following to assist as needed with discharge planning.
--- NOTE | 2020-04-09 18:27 | NUR ---
PT is not progressing towards plan goals. PT has had sustained fever with minimal relief with tylenol. Dr. Guerrero, Aubrey, and Greg are all aware. Blood, sputum, and urine cultures were sent to lab. Dr. Arenas ordered a barium enema however radiology contacted RN and stated they would not be able to do this today and that it would have to wait until Sunday. RN spoke with IV team in regards to PT's central line who told RN to pull the central line and IR will place a TICC on Sunday. PT is currently resting in bed. IVF running at 125 mls/hr. Will continue to monitor.
--- NOTE | 2020-04-09 23:10 | NUR ---
ASSUMED CARE OF PATIENT AT 1900. FAMILY CALLED, UPDATE GIVEN. DR BRANCH REVIEWED PATIENT LABS. ORDERS FOR BLOOD TRANSFUSION RECIEVED FOR TONIGHT. CONSENT OBTAINED FROM DAUGHTER PHIL PEREZ
[2020-04-10] VITALS (26 sets, daily range): BP systolic 114–169; BP diastolic 64–98
[2020-04-10 05:29] LABS: BE(vivo) -2.1 mmol/L (-2 to +3); HCO3 22.3 mmol/L (22.0-26.0); PCO2 36.9 mmHg (35.0-45.0); PO2 64.4 mmHg (80.0-100.0); pH 7.399 (7.360-7.450); sO2 92.7 % (92.0-98.0)
[2020-04-10 10:01] LABS: HEMATOCRIT 29.2 % (37.0-47.0); MCHC 33.2 g/dL (28.0-37.0); MCV 84.2 fL (80.0-100.0); RBC 3.47 mil/uL (4.20-5.00); WBC 23.7 thou/uL (4.0-11.0)
[2020-04-10 10:06] LABS: HEMOGLOBIN 9.7 gm/dL (12.0-15.0); PLATELET COUNT 374 thou/uL (150-400)
[2020-04-10 10:20] LABS: ALBUMIN 2.2 g/dL (3.4-5.0); CALCIUM 8.8 mg/dL (8.5-10.1); CREATININE 0.5 mg/dL (0.6-1.0); MAGNESIUM 1.3 mg/dL (1.8-2.4); POTASSIUM 3.4 mmol/L (3.5-5.1); TOTAL BILIRUBIN 0.6 mg/dL (0.2-1.0); TOTAL PROTEIN 6.9 g/dL (6.4-8.2)
[2020-04-10 10:23] LABS: ABSOLUTE NEUTROPHILS 20.6 thou/uL (1.4-8.2); POLYCHROMASIA 1+
--- NOTE | 2020-04-10 16:04 | NUR ---
PATIENT HAS HAD FEVERS THROUGH THE DAY. SECOND TYLENOL ADMININSTERED FINALLY BROKE THE FEVERS. HER TEMP IS NOW AT 37.9. SHE WAS ALSO ADMININSTERED LOPRESSOR BP AND CA WERE HIGH. PATIENT DOES NOT SEEM TO BE IN PAIN. SHE IS LESS RESPONSIVE THIS AM. WILL NOT RESPONSE TO INPUT. NOTED TO COUGH QUITE FREQUENTLY. UPDATED FAMILY MEMBERS(DAUTHER AND AND SISTER FROM [facility]). WILL CONT WITH PLAN OF CARE.
--- NOTE | 2020-04-10 22:28 | NUR ---
PT RESTING IN BED. OPENS EYES WHEN DOOR OPENS, TURNS HEAD YES OR NO TO DIRECT QUESTIONS. VENT TRACH INTACT. LUNGS DIMINISHED. COUGH PRODUCTIVE, THIN CLEAR SECRETIONS SUCTIONED. SCDS INTACT. IVF INTACT. PEG INTACT. OBESE, GENERALIZED EDEMA. PEREZ TO DD. RECTAL TUBE DD. LOVENOX PROVIDED. PT DOES WIGGLE FEET AND MINIMAL MOVEMENT OF HANDS.
[2020-04-11] VITALS (19 sets, daily range): BP systolic 125–147; BP diastolic 64–88
[2020-04-11 10:40] LABS: ABSOLUTE NEUTROPHILS 14.3 thou/uL (1.4-8.2); BASOPHILS 0.4 % (0.0-2.0); EOSINOPHILS 1.6 % (0.0-3.0); HEMATOCRIT 27.6 % (37.0-47.0); HEMOGLOBIN 9.2 gm/dL (12.0-15.0); LYMPHOCYTES 12.2 % (24.0-44.0); MCH 28.2 pg (26.0-34.0); MCHC 33.2 g/dL (28.0-37.0); MCV 84.9 fL (80.0-100.0); MONOCYTES 8.6 % (1.0-8.0); PLATELET COUNT 302 thou/uL (150-400); POLYS 77.2 % (36.0-66.0); RBC 3.25 mil/uL (4.20-5.00); RDW 16.1 % (10.5-14.5); WBC 18.5 thou/uL (4.0-11.0)
--- NOTE | 2020-04-11 16:57 | NUR ---
PT ON VENTILATOR, NO SEDATION. PT IS NEUROLOGICALLY INTACT. FOLLOWS DIRECTION AND NODS HEAD TO YES/NO ANSWERS. ASSESSMENTS DOCUMENTED. PLAN IS TO DO BARRIUM ENEMA STUDY ON SUNDAY, AND ALSO TICC LINE PLACEMENT. ADEQUATE UOP. FMS IN PLACE. PT AND FAMILY HAVE BEEN UPDATED AND EDUCATED. WILL CONTINUE TO MONITOR.
[2020-04-12] VITALS (21 sets, daily range): BP systolic 110–164; BP diastolic 55–95
--- NOTE | 2020-04-12 07:08 | NUR ---
ASSUMED CARE OF PATIENT AT 1900. ASSESSMENT COMPLETED. PATIENT COMMUNICATED BY NODDING HER HEAD AND MOUTHING WORDS. TRACH PATENT. COPIOUS AMOUNT OF SECRETIONS IN BOTH TRACH AND MOUTH. PEREZ PATENT. DENIES PAIN. PATIENT ABLE TO "MOTION" SIGNIFYING THAT SHE NEEDS SUCTION. IV ABX. Q6 ACCUCHECKS WITHOUT NEEDING ANY INSULIN COVERAGE. PATIENT TO CONTINUE WITH POC.
--- NOTE | 2020-04-12 09:54 | NUR ---
WOUND CONSULT; ASSESSMENT LIMITED TO PICTURES RE; COVID RESTRICTIONS. A WOUND WAS IDENTIFIED TO THE GLUTEAL CLEFT AREA 4.0 X 0.2 X 0.1 (ESTIMATE) NO VISABLE S/S OF INFECTION. THE LEFT CHEEK HAS AN AREA SUSPICIOUS RE; MECHANICAL PRESSURE, WITH NO S/S OF INFECTION. RECOMMENDATIONS; 1-STRICT Q2H TURING 2-ZGUARD TO GLUTEAL CLEFT DAILY/PRN 3-APPLY MARATHON WITH MULTIPLE LAYERS (USING A CRUSTING TECHNIQUE). DISCUSSED WITH RN 3-MARATHON TO LEFT CHEEK
--- NOTE | 2020-04-12 10:40 | NUR ---
Nutrition: Per nsg pt will start TPN as unable to tolerate TF for extended period of time. RD recs TPN: 15% dextrose, 7% aa, 2.9% lipids at goal rate 65 mL/hr to meet ~100% of needs.
--- NOTE | 2020-04-12 10:45 | NUR ---
THIS RN ASSUMED CARE OF PATIENT AROUND THIS TIME.
--- NOTE | 2020-04-12 15:20 | NUR ---
OFF UNIT FROM [id number]. PATIENT TOLERATED TRANSPORT WITH RN AND RT. SHE TOLERATED HER BARIUM STUDY. SHE WAS THEN CLEANED UP AND PLACED ON CLEAN SHEETS. NURSE TO AWAIT REPORT TO UPDATE FAMILY AND PHYSICIANS.
--- NOTE | 2020-04-12 15:32 | NUR ---
DR. FANTA SERNA ROUNDED. EXPRESSED WOULD PREFER TO HAVE THE J-TUBE EXCHANGE IF GI IS OK WITH BARIUM STUDY, INSTEAD OF TICC OR PICC LINE. NURSE CALLED GI, WILL TALK WITH THEM. NURSE THEN CALLED DR. VELIZ IN REGARDS TO THIS. PER HIS REPORT, WE WILL TALK WITH PHYSICIANS TOMORROW AND COMPLETE PLAN FOR TPN VS TUBE FEEDINGS. HE EXPRESSED TO LET DR. MAHER KNOW ABOUT THIS PLAN HE WAS THE PHYSICIAN THAT HAD EXPRESSED THE NEED FOR TPN AT THIS TIME. NURSE TO CALL PHYSICIAN.
--- NOTE | 2020-04-12 16:24 | NUR ---
SW reviewed chart and spoke with attending physician. Pt remains in Enhanced Isolation to r/o COVID-19. Pt's tube feedings are on hold at this time. CPAP trials continue. SUZAN spoke with pt's dtr, Jaz, via phone to provide update and discuss LTAC placement. Pt's dtr states their preference is [facility]. However they would like for pt to go to [facility]. SUZAN contacted [facility] liaison to check to see if their status has changed, with regards to accepting COVID positive pts. Awaiting response. Pt's dtr is agreeable with referral to [facility]. SW faxed clinical info to [facility] and discussed with [facility] liaison. SUZAN is following to assist as needed with discharge planning.
--- NOTE | 2020-04-12 18:18 | NUR ---
PT HAS AN ORDER FOR A TICC SHE WILL BE GOING TO A SNF SOON. SHE IS HIGH RISK FOR A DVT SO IF CENTRAL ACCESS IS NEEDED THIS IS HER BEST OPTION. MD WANTS TO WAIT TO SEE IF SHE TOLERATES HER TUBE FEEDS AND SEE IF CL IS NOT NEEDED FOR POS TPN.
--- NOTE | 2020-04-12 19:15 | NUR ---
PATIENT PROGRESSING TOWARDS PLAN OF CARE. SHE IS ABLE TO COMMUNICATE HER NEEDS AND IS MOVING HER ARMS WEAKLY AND WIGGLES HER TOES. SHE NODS YES/NO TO SIMPLE QUESTIONS. SHE HAD A BARIUM ENEMA STUDY TODAY AND TOLERATED IT WELL. SHE EXPRESSED SOME GENERALIZED DISCOMFORT AFTER PROCEEDURE, THIS WAS INFORMED TO PHYSICIAN, ORDERS RECEIVED. PAIN MEDICATION GIVEN AND SHE EXPRESSED HER PAIN WAS GONE AFTERWARDS. SHE HAS TAEN NAPS TODAY INTERMITTENTLY. NURSE TALKED WITH MULTIPLE PHYSICIANS TODAY TO FORMULATE A PLAN FOR NUTRITION. PER DR. SERNA AND DR. STALLWORTH, PLAN FOR J-TUBE EXCHANGE TOMORROW. ORDERS PROVIDED BY DR. STALLWORTH. NURSE UPDATED DR. VELIZ THIS AFTERNOON ON DR. RAIN'S RECOMMENDATIONS ABOUT NOT PLACING A CENTRAL LINE AND USING A J-TUBE FOR NUTRITION INSTEAD.
[2020-04-13] VITALS (69 sets, daily range): BP systolic 104–188; BP diastolic 43–100
[2020-04-13 05:20] LABS: ALBUMIN 1.6 g/dL (3.4-5.0); CALCIUM 7.7 mg/dL (8.5-10.1); CREATININE 0.5 mg/dL (0.6-1.0); MAGNESIUM 1.4 mg/dL (1.8-2.4); PHOSPHORUS 2.8 mg/dL (2.5-4.9); TOTAL BILIRUBIN 0.5 mg/dL (0.2-1.0); TOTAL PROTEIN 5.5 g/dL (6.4-8.2)
[2020-04-13 05:46] LABS: POTASSIUM 2.4 mmol/L (3.5-5.1)
--- NOTE | 2020-04-13 06:00 | NUR ---
REMAINS TRACHED AND VENTED. NPO FOR AM J LOOP PRECEEDURE. PT IS AWAKE AND ALERT. SHE IS SMILING AND WAVING BACK WHEN I WAVE TO HER FROM THE WINDOW. A VERY DELIGHTFUL LITTLE LADY WHO HAS BEEN THRU SO VERY MUCH. DENIES PAIN AT PRESENT. 1000 CC UO THIS SHIFT. ZERO FROM FMS DILAUDID GIVEN ONE TIME EARLIER TONIGHT FOR GENERAL DISCOMFORT. REMAINS IN ISOLATION. POSITIVE FOR COVID 19. WILL CONBT TO MONITOR.
--- NOTE | 2020-04-13 07:00 | NUR ---
COMPLETE BED BATH AND LINEN CHANGE DONE. PROGRESSING TOWARD GOALS. WILL CONT TO MONITOR. DR STALLWORTH TO BE HERE SOON FOR PROCEEDURE
--- NOTE | 2020-04-13 09:10 | NUR ---
Time out performed with proceedural staff and physician. Dr. Arenas here to perform J-tube exchange.
--- NOTE | 2020-04-13 10:15 | NUR ---
1015- j-tube exchange unsuccessful. plan to resume tube feedings at 10ml per hour then this evening increase to 20ml/hour.
--- NOTE | 2020-04-13 12:15 | NUR ---
Dr. Alves and DR. Arenas expressed ok to place TICC line today. Patient requiring potassium which has to infuse slowly because it bay her veins, per her report. There is also interets of starting TPN to provide nutrition.
--- NOTE | 2020-04-13 12:35 | NUR ---
1235- Nurse obtained consent for a TICC line from Allan Misti. Risks and benefits explained, questions were answered. Also nurse updated her on patients proceedure today and her plan of care.
--- NOTE | 2020-04-13 13:00 | NUR ---
1300- nurse talked with Chanda in regards to her sisters plan of care.
--- NOTE | 2020-04-13 16:04 | NUR ---
SUZAN reviewed chart and spoke with attending physician. Pt is progressing towards goals for discharge to [facility]. Discharge anticipated for tomorrow per attending. SUZAN contacted [facility] liaison, who states they will start working on a one time contract with pt's insurance. SUZAN confirmed with [facility] liaison that they are not accept COVID positive pts at this time and unsure if they will in the future. SUZAN spoke with pt's dtr, Jaz, to provide update and discuss discharge to [facility]. Pt's dtr is agreeable with discharge plan. SUZAN informed that [facility] is not accepting pt's. SUZAN left voice message for Harini [facility] ANJANA to provide update. SUZAN is following to assist as needed with discharge planning.
[2020-04-13 19:00] LABS: MAGNESIUM 1.6 mg/dL (1.8-2.4)
[2020-04-13 19:02] LABS: POTASSIUM 2.7 mmol/L (3.5-5.1)
--- NOTE | 2020-04-13 20:14 | NUR ---
PATIENT PROGRESSING TOWARDS PLAN OF CARE. SHE DENIES NAUSEA TUBE FEEDINGS WERE STRATED TODAY. PLAN FOR TICC LINE TOMORROW. POTASSIUM REPLACED, HOWEVER WAS SLOW SECONDARY TO LACK OF ADEQUATE IV. NEW IV LINES WAS PLACED AND POTASSIUM INFUSED MORE EFFICIENTLY. REDRAW PERFORMED OF ELECTROLYTES, PROTOCOL FOLLOWED. PATIENT EXPRESSED SHE IS UNCOMFRTABLE, HOWEVER DOES NOT WANT PAIN MEDICATIONS AT THIS TIME.
[2020-04-14] VITALS (24 sets, daily range): BP systolic 124–177; BP diastolic 61–100
[2020-04-14 06:06] LABS: ALBUMIN 1.9 g/dL (3.4-5.0); CREATININE 0.5 mg/dL (0.6-1.0); MAGNESIUM 1.9 mg/dL (1.8-2.4); PHOSPHORUS 2.3 mg/dL (2.5-4.9)
[2020-04-14 06:13] LABS: POTASSIUM 2.8 mmol/L (3.5-5.1)
--- NOTE | 2020-04-14 07:20 | NUR ---
ASSUMED CARE AT 1900. PT REPORTS JUST BEING UNCOMFORTABLE, GAVE TYLENOL WHICH HELPED SOME. FREQ COUGH WITH SECRETIONS AND FREQ SUCTIONING. TUBE FEED RUNNING AT 20 ML/HR, NO RESIDUAL, DENIES NAUSEA. Q2 TURNS, PT ASKED TO SIT ON SIDE OF BED THIS AM, C/O OF LAYING IN BED. POTASSIUM STILL CRITICAL THIS AM, REPORTED TO OVERNIGHT JOURNEYMAN TOOL AND DIE MAKER AND STARTED ANOTHER BAG PER PROTOCOL. BLOOD SUGARS NORMAL, NO INSULIN GIVEN. NO OTHER CONCERNS, SHIFT REPORT GIVEN AT 0700.
--- NOTE | 2020-04-14 15:09 | NUR ---
PT INTUBATED VIA 7.0 TRACH. POTASSIUM BEING REPLACED VIA HOSPITAL PROTOCAL. TICC LINE PLACED BY IR IN RIGHT SUBCLAVIAN. HAS BEEN APPROVED FOR USE. PT/OT WORKED WITH PT AND GOT HER INTO A CARDIAC CHAIR. PT IN GOOD SPIRITS. NO O2 TRIAL TODAY. UOP ADEQUATE. FMS IN PLACE. PT TOLERATING TUBE FEED, MINIMAL RESIDUALS. ACCUCHECKS WNL. PT CONTINUES TO BE TACHYCARDIC AND HYPERTENSIVE DESPITE METOPROLOL BID. PHYSICANS AWARE. AWAITING INSURANCE AUTHORIZATION FOR TRANSFER TO [facility]. PT PROGRESSING TOWARDS POC. WILL CONTINUE TO MONITOR.
[2020-04-14] MEDS ORDERED: IPRAT-ALBUT 0.5-3 ML INH ×2 (16:01)
[2020-04-14] MEDS ORDERED: POTASSIUM CHLO20 MEQ PER TUBE ×2 (16:01→16:11)
[2020-04-14] MEDS ORDERED: METOCLOPRAM5 MG/1 ML IV PUSH (16:01)
[2020-04-14] MEDS ORDERED: PERIDEX 0.12%473 M1 MUCOUS MEM (16:01)
[2020-04-14] MEDS ORDERED: AKWA TEARS OIN3.5 GM OPHTHALMIC (16:01)
[2020-04-14] MEDS ORDERED: METOPROLOL5 MG/5 M2 IV PUSH (16:01)
[2020-04-14] MEDS ORDERED: FAMOTIDINE20 MG/2 M2 IV PUSH (16:01)
[2020-04-14] MEDS ORDERED: ENOXAPARIN120 MG/0.1 SUBQ (16:01)
[2020-04-14] MEDS ORDERED: LORAZEPAM 22 MG/1 ML IV PUSH (16:08)
[2020-04-14] MEDS ORDERED: CEFEPIME-D2 GM/50 ML IV (16:11)
[2020-04-14] MEDS ORDERED: TYLENOL325 MG PER TUBE (16:11)
[2020-04-14] MEDS ORDERED: FLAGYL500 M1 IV (16:11)
--- NOTE | 2020-04-14 16:14 | NUR ---
DISCHARGE NOTE: SUZAN reviewed chart and spoke with nursing and attending physician. Pt remains intubated and in Enhanced Isolation due to COVID-19. Pt is medically stable for discharge to LTAC today. Pt had TICC line placed earlier today. SUZAN spoke with [facility] liaison, who states they did obtain insurance authorization and can accept pt today. [facility] vickison to notify pt's dtr, Jaz. SUZAN notified attending physician and BENEFIT AUTHORIZER of insurance authorization. Awaiting final discharge orders/summary at this time. SUZAN arranged ambulance transportation for 1800 per [facility] request. SUZAN notified [facility] that pt is COVID-19 positive. Chart copy requested from . SUZAN spoke with pt's dtr, Jaz, via phone to provide update and notify of discharge time. Jaz is aware and agreeable with plan. Updated nursing. Nursing to call report to [phone]. No additional SW needs identified at this time, but is available to assist should needs arise.
--- NOTE | 2020-04-14 16:28 | O ---
[facility] [place] [address] OPERATIVE REPORT Name: BERNARDO MCDONNELL Room #: 239-P ADM IN M.R.#: [id number] Admission: 03/02/20 Attend Phys: Shaji Santoyo MD Discharge: Date of : 50 Report #: [id number] THIS REPORT FOR: cc: Samina Godwin MD,Samina Arenas,Jona Gutierrez MD ~ CC: Shaji Godwin DATE OF SERVICE: 04/13/2020 PROCEDURE PERFORMED: Attempted EGD with conversion of G-tube to GJ tube. PREOPERATIVE DIAGNOSIS: Tube feed intolerance. POSTOPERATIVE DIAGNOSIS: Tube feed intolerance. SURGEON: Dr. Arenas. SUPERVISOR MAIL CARRIERS: None. ANESTHESIA: Versed 10 mg and fentanyl 300 mcg. ESTIMATED BLOOD LOSS: None. URINE OUTPUT: Not measured. SPECIMENS: None. FINDINGS: Severely edematous pharynx and tongue prior to procedure. DESCRIPTION OF PROCEDURE: After informed consent was obtained, the patient was placed in the supine position in her ICU bedroom. Sedative anesthesia was induced. This was very difficult. We started slow with 1 mg Versed and 50 mcg of fentanyl and over the course of the next hour, she received a total of 10 mg of Versed and 300 mcg of fentanyl. This never resulted in any adequate sedation and the patient was not tolerating the scope within her oropharynx. In addition, the patient's pharynx was severely edematous and the esophagus was not able to be cannulated by the EGD. Therefore, we concluded the procedure. The patient tolerated the procedure well. There were no adverse events throughout the course of procedure. <ELECTRONICALLY SIGNED> By: Jona Arenas MD 04/14/20 1628 [id number] Jona Arenas MD /nt
== END 2020-04-14 18:45 | DRG 4 ==
LOC: ER 14:28 → ICU 17:29 → EROBS 17:29 → ICU 03-03 05:06
PROVIDERS: Hospitalist; Internal Medicine; Internal Medicine Pulmonary Disease; Nurse Practitioner; Pediatrics; Physician Assistant; Specialist; Surgery; ADMIT Internal Medicine; ATTEND Internal Medicine
DX: A41.9 Sepsis, unspecified organism (principal); U07.1 COVID-19; J12.89 Other viral pneumonia; J96.21 Acute and chronic respiratory failure with hypoxia; G92 Toxic encephalopathy; E43 Unspecified severe protein-calorie malnutrition; N17.9 Acute kidney failure, unspecified; E87.0 Hyperosmolality and hypernatremia; G72.81 Critical illness myopathy; D68.59 Other primary thrombophilia; K56.7 Ileus, unspecified; Z68.41 Body mass index [BMI] 40.0-44.9, adult; R74.0 Nonspecific elevation of levels of transaminase and lactic acid dehydrogenase [LDH]; E66.01 Morbid (severe) obesity due to excess calories; K21.9 Gastro-esophageal reflux disease without esophagitis; M19.90 Unspecified osteoarthritis, unspecified site; R63.3 Feeding difficulties; M06.9 Rheumatoid arthritis, unspecified; N18.9 Chronic kidney disease, unspecified; F12.90 Cannabis use, unspecified, uncomplicated; I95.9 Hypotension, unspecified; E11.65 Type 2 diabetes mellitus with hyperglycemia; E87.8 Other disorders of electrolyte and fluid balance, not elsewhere classified; D64.9 Anemia, unspecified; E87.6 Hypokalemia; I12.9 Hypertensive chronic kidney disease with stage 1 through stage 4 chronic kidney disease, or unspecified chronic kidney disease; J22 Unspecified acute lower respiratory infection; R13.10 Dysphagia, unspecified; E11.22 Type 2 diabetes mellitus with diabetic chronic kidney disease; B37.9 Candidiasis, unspecified; B96.5 Pseudomonas (aeruginosa) (mallei) (pseudomallei) as the cause of diseases classified elsewhere; Z88.2 Allergy status to sulfonamides; Z88.8 Allergy status to other drugs, medicaments and biological substances; Z79.899 Other long term (current) drug therapy
CPT/HCPCS: 10078; 50101; 50386; 50403; 50550; 56525; 62110; 62900; 85076